=== PATIENT | male | born 1935 | race Caucasian/White ===

== ENCOUNTER → 2016-09-16 | Outpatient (CLI) | payer OTHER, MEDICARE | LOC: BHFA 11:30 | PROVIDERS: ATTEND Internal Medicine Cardiovascular Disease | DX: I48.91 Unspecified atrial fibrillation (principal); I34.8 Other nonrheumatic mitral valve disorders ==

== ENCOUNTER 2016-09-22 06:48 | Inpatient (IN) | payer OTHER, MEDICARE ==
[~2016-09-22 06:48] MED LIST: CEFAZOLIN 2 GM/DEXTROSE/100 ML BAG IV ONE; LIDOCAINE 1% 5 ML SDV ONE; ceFAZolin 2 GM/DEXTROSE 100 ML IV ONE
[2016-09-22] MEDS ORDERED: CEFAZOLIN 2 GM/DEXTROSE/100 ML BAG IV ONE (07:02)
[2016-09-22] MEDS ORDERED: LIDOCAINE 1% 5 ML SDV ONE (07:02)
[2016-09-22] MEDS ORDERED: BUPIVACAINE 0.5% 30 ML SDV ONE (07:18)
[2016-09-22] MEDS ORDERED: LR 1,000 ML IV ONE (07:43)
[2016-09-22] MEDS ORDERED: LIDOCAINE 1% 5 ML SDV ID PRN (07:43)
[2016-09-22] MEDS ORDERED: PROPOFOL 200 MG/20 ML VIAL ONE (07:56)
[2016-09-22] MEDS ORDERED: fentaNYL 250 MCG/5 ML INJ ONE (07:57)
[2016-09-22] MEDS ORDERED: MIDAZOLAM 2 MG/2 ML VIAL ONE (08:20)
[2016-09-22] MEDS ORDERED: ROCURONIUM 50 MG/5 ML VIAL ONE (08:56)
[2016-09-22] MEDS ORDERED: LIDOCAINE 2% 5 ML SDV ONE (08:56)
[2016-09-22] MEDS ORDERED: DEXAMETHASONE 4 MG/ML VIAL ONE (08:56)
[2016-09-22] MEDS ORDERED: epHEDrine SULFATE 10 MG/ML SYR ONE (08:56)
[2016-09-22] MEDS ORDERED: ONDANSETRON 4 MG/2 ML VIAL ONE (08:56)
[2016-09-22] MEDS ORDERED: PROPOFOL/EMULSION 500 MG/50 ML BOTTLE IV ONE (09:02)
[2016-09-22] MEDS ORDERED: SUGAMMADEX SODIUM 200 MG/2 ML VIAL IVP ONE (09:33)
[2016-09-22] MEDS ORDERED: ACETAMINOPHEN 325 MG TAB PO PRN (09:45)
[2016-09-22] MEDS ORDERED: HYDROmorphONE/DILAUDID 1 MG/ML SYR IVP PRN (09:45)
[2016-09-22] MEDS ORDERED: D5W 1/2 NS W/ 20 KCl/L 1,000 ML IV SCH (09:45)
[2016-09-22] MEDS ORDERED: ONDANSETRON 4 MG/2 ML VIAL IVP PRN (09:45)
[2016-09-22] MEDS: LEVOTHYROXINE 88 MCG TAB PO SCH (14:43)
[2016-09-22] MEDS: ROSUVASTATIN CALCIUM 20 MG TAB PO SCH (14:43)
[2016-09-22] MEDS: ASPIRIN 81 MG CHEWABLE TAB PO SCH (14:43)
[2016-09-22] MEDS: HYDROCODONE/APAP 5/325 TAB PO PRN ×2 (15:16→19:13)
--- NOTE | 2016-09-22 19:04 | POSTOPPROG ---
Post Op Note Date of Operation: 09/22/16 Surgeon: John Han Pill Machine Operator: Naveed Fleming Anesthesiologist: Dr Myers Anesthesia: GET(General Endotracheal) Pre-op Diagnosis: right inguinal hernia Post-op Diagnosis: same Indication: pain Procedure: lap right inguinal hernia repiar Findings: very large right inguinal hernia Inf/Abcess present in the surg proc area at time of surgery?: No Depth: Organ Space EBL: 50-100
--- NOTE | 2016-09-22 19:07 | SOAPPROG ---
SOAP Progress Note Assessment/Plan: Assessment: 81yo male s/p very large lap inguinal hernia repair (seen post op around 1400) Pain well controlled at this time, would like to eat solid food. Would like to leave pimentel in until morning. PE awake alert Chest CTA B/L Abd clean dry incisions, nondistended Pimentel in place with small amount of blood at meatus Plan: regular diet Norvasc 10mg for HTN Expect 3 night stay secondary to pain from size of hernia, complex medical condition, also pt lives alone not very mobile. PT/OT 09/22/16 19:04 Objective: Vital Signs Temp Pulse Resp BP Pulse Ox 36.5 C 80 16 162/95 H 90 L 09/22/16 15:00 09/22/16 15:00 09/22/16 15:00 09/22/16 15:00 09/22/16 15:00 09/21/16 09/22/16 09/23/16 05:59 05:59 05:59 Intake Total 3850 Output Total 775 Balance 3075 ICD10 Worksheet Patient Problems: Problems Problem Status Diagnosed Chronic Disease Mgmt/Transitional Care Acute
[2016-09-22] MEDS ORDERED: FLU VACC TS 2016-17(65YR+)/PF 0.5 ML SYR (FLUZONE HIGH DOSE) IM ONE (19:46)
[2016-09-22] MEDS ORDERED: NON-FORMULARY NEW DRUG (Mirtazapine [Mirtazapine] 15 MG) PO SCH (21:00)
[2016-09-22] MEDS: MIRTAZAPINE 15 MG TAB PO SCH (21:28)
[2016-09-23 05:16] LABS: HEMATOCRIT 32.5 % (40.0-51.0); HEMOGLOBIN 10.5 g/dL (13.7-17.5)
[2016-09-23 05:44] LABS: ANION GAP 7 mEq/L (8-16); CALCIUM 8.3 mg/dL (8.5-10.4); CARBON DIOXIDE 24 mEq/l (22-31); CHLORIDE 108 mEq/L (97-110); CREATININE 1.1 mg/dL (0.7-1.3); GLOMERULAR FILTRATION RATE > 60; GLUCOSE 111 mg/dL (70-100); POTASSIUM 4.8 mEq/L (3.5-5.2); SODIUM 139 mEq/L (134-144)
[2016-09-23] MEDS: LEVOTHYROXINE 88 MCG TAB PO SCH (05:53)
[2016-09-23] MEDS: ROSUVASTATIN CALCIUM 20 MG TAB PO SCH (08:00)
[2016-09-23] MEDS: ASPIRIN 81 MG CHEWABLE TAB PO SCH (08:00)
[2016-09-23] MEDS: PARoxetine HCL 10 MG TAB PO SCH (08:00)
[2016-09-23] MEDS: HYDROCODONE/APAP 5/325 TAB PO PRN ×3 (08:01→16:57)
[2016-09-23] MEDS: RIVAROXABAN 20 MG TAB PO SCH (08:02)
--- NOTE | 2016-09-23 12:54 | SOAPPROG ---
SOAP Progress Note Assessment/Plan: Assessment: 81yo male s/p very large lap inguinal hernia repair (seen post op around 1400) Pain well controlled at this time, would like to eat solid food. Would like to leave pimentel in until morning. PE awake alert Chest CTA B/L Abd clean dry incisions, nondistended Pimentel in place with small amount of blood at meatus Plan: regular diet Norvasc 10mg for HTN Expect 3 night stay secondary to pain from size of hernia, complex medical condition, also pt lives alone not very mobile. PT/OT 09/22/16 19:04 09/23/16 12:52 tolerating regular diet, pain well controlled PE awake alert Chest CTA B/L Abdomen incisions clean/dry scrotum enlarged Plan keep pimentel in until Monday continue PT/OT Objective: Vital Signs Temp Pulse Resp BP Pulse Ox 36.4 C 67 17 126/69 H 93 09/23/16 11:13 09/23/16 11:13 09/23/16 11:13 09/23/16 11:13 09/23/16 11:13 Laboratory Results 09/23/16 04:40 09/23/16 04:40 09/22/16 09/23/16 09/24/16 05:59 05:59 05:59 Intake Total 4924 Output Total 1200 Balance 3724 ICD10 Worksheet Patient Problems: Problems Problem Status Diagnosed Chronic Disease Mgmt/Transitional Care Acute
[2016-09-23] MEDS: MIRTAZAPINE 15 MG TAB PO SCH (20:18)
[2016-09-24] MEDS: HYDROCODONE/APAP 5/325 TAB PO PRN ×2 (03:02→10:22)
[2016-09-24] MEDS: LEVOTHYROXINE 88 MCG TAB PO SCH (06:09)
--- NOTE | 2016-09-24 09:56 | SOAPPROG ---
SOAP Progress Note Assessment/Plan: Assessment: LITTLE SLEEPY THIS MORNING BUT CONTINUES TO IMPROVE. WOUNDS ARE HEALING WELL WITH SOME SCROTAL SWELLING ON THE RIGHT. URINE OUTPUT IS ADEQUATE. MODERATE CHRONIC EDEMA BOTH LEGS. ABDOMEN IS SOFT NONTENDER Plan: DELAYED DISCHARGE UNTIL TOMORROW IN IS MORE MOBILE 09/24/16 09:54 Objective: Vital Signs Temp Pulse Resp BP Pulse Ox 37.0 C 63 18 158/80 H 93 09/24/16 08:00 09/24/16 08:00 09/24/16 08:00 09/24/16 08:00 09/24/16 08:00 Laboratory Results 09/23/16 04:40 09/23/16 04:40 09/23/16 09/24/16 09/25/16 05:59 05:59 05:59 Intake Total 4924 0 Output Total 1200 1025 Balance 3724 -1025 ICD10 Worksheet Patient Problems: Problems Problem Status Diagnosed Chronic Disease Mgmt/Transitional Care Acute
[2016-09-24] MEDS: RIVAROXABAN 20 MG TAB PO SCH (10:22)
[2016-09-24] MEDS: ASPIRIN 81 MG CHEWABLE TAB PO SCH (10:22)
[2016-09-24] MEDS: ROSUVASTATIN CALCIUM 20 MG TAB PO SCH (10:23)
[2016-09-24] MEDS: PARoxetine HCL 10 MG TAB PO SCH (10:23)
[2016-09-24] MEDS ORDERED: POLYETHYLENE GLYCOL 3350 17 GM PKT PO PRN (16:13)
[2016-09-24] MEDS ORDERED: LACTULOSE 20 GM/30 ML UDCUP PO PRN (16:13)
[2016-09-24] MEDS ORDERED: MAGNESIUM HYDROXIDE 30 ML UDCUP PO PRN (16:13)
[2016-09-24] MEDS ORDERED: BISACODYL 10 MG SUPP PR PRN (16:13)
[2016-09-24] MEDS: MIRTAZAPINE 15 MG TAB PO SCH (20:34)
[2016-09-24] MEDS: SENNOSIDES/DOCUSATE SODIUM TAB PO SCH (20:34)
[2016-09-25] MEDS: LEVOTHYROXINE 88 MCG TAB PO SCH (05:54)
[2016-09-25] MEDS: PARoxetine HCL 10 MG TAB PO SCH (09:45)
[2016-09-25] MEDS: ASPIRIN 81 MG CHEWABLE TAB PO SCH (09:45)
[2016-09-25] MEDS: SENNOSIDES/DOCUSATE SODIUM TAB PO SCH ×2 (09:45→20:16)
[2016-09-25] MEDS: RIVAROXABAN 20 MG TAB PO SCH (09:46)
[2016-09-25] MEDS: ROSUVASTATIN CALCIUM 20 MG TAB PO SCH (09:46)
[2016-09-25] MEDS: FLUDROCORTISONE ACETATE 0.1 MG TAB PO SCH (12:38)
--- NOTE | 2016-09-25 18:38 | SOAPPROG ---
SOAP Progress Note Assessment/Plan: Assessment: LITTLE SLEEPY THIS MORNING BUT CONTINUES TO IMPROVE. WOUNDS ARE HEALING WELL WITH SOME SCROTAL SWELLING ON THE RIGHT. URINE OUTPUT IS ADEQUATE. MODERATE CHRONIC EDEMA BOTH LEGS. ABDOMEN IS SOFT NONTENDER Plan: DELAYED DISCHARGE UNTIL TOMORROW IN IS MORE MOBILE 09/24/16 09:54 09/25/16 18:35 DOING OK/ WOUNDS OK/ AFEBRILE/SOME SCROTAL SWELLING/ PLAN DC MAN/ SNF Objective: Vital Signs Temp Pulse Resp BP Pulse Ox 36.4 C 65 16 132/66 H 94 09/25/16 15:03 09/25/16 15:03 09/25/16 15:03 09/25/16 15:03 09/25/16 15:03 Laboratory Results 09/23/16 04:40 09/23/16 04:40 09/24/16 09/25/16 09/26/16 05:59 05:59 05:59 Intake Total 0 2100 Output Total 1025 2050 Balance -1025 50 ICD10 Worksheet Patient Problems: Problems Problem Status Diagnosed Chronic Disease Mgmt/Transitional Care Acute
[2016-09-25] MEDS: MIRTAZAPINE 15 MG TAB PO SCH (20:16)
[2016-09-26 04:26] VITALS: RESP 18
[2016-09-26] MEDS: LEVOTHYROXINE 88 MCG TAB PO SCH (05:40)
[2016-09-26 08:07] VITALS: BP 150/77; TEMP 97.3
[2016-09-26] MEDS: ROSUVASTATIN CALCIUM 20 MG TAB PO SCH (09:15)
[2016-09-26] MEDS: ASPIRIN 81 MG CHEWABLE TAB PO SCH (09:16)
[2016-09-26] MEDS: PARoxetine HCL 10 MG TAB PO SCH (09:17)
[2016-09-26] MEDS: RIVAROXABAN 20 MG TAB PO SCH (09:17)
[2016-09-26] MEDS: SENNOSIDES/DOCUSATE SODIUM TAB PO SCH (09:18)
--- NOTE | 2016-09-26 09:18 | PDIAF ---
- Diagnosis Diagnosis: s/p hernia surgery Code Status: Full Code - Medication Management Discharge Medications: Medications to Continue on Transfer Fludrocortisone Acetate [Florinef] 0.1 mg PO DAILY10 01/24/13 [Last Taken ] Levothyroxine [Synthroid 88 mcg (*)] 88 mcg PO DAILY06 01/24/13 [Last Taken 09/06] Rivaroxaban [Xarelto] 20 mg PO DAILY 02/02/15 [Last Taken 09/15/16] Aspirin [Aspirin 81mg (*)] 81 mg PO DAILY 06/02/16 [Last Taken 09/08/16] Mirtazapine 15 mg PO HS 09/21/16 [Last Taken 09/21/16] PARoxetine HCL [Paxil 10mg (*)] 5 mg PO DAILY 09/21/16 [Last Taken 09/21/16] Rosuvastatin Calcium [Crestor 20mg (*)] 10 mg PO DAILY 09/21/16 [Last Taken 09/06] Acetaminophen [Tylenol 325mg (*)] 325 - 650 mg PO Q4HRS PRN #0 tab 09/26/16 [ Last Taken Unknown] Discharge Medications: Refer to the Discharge Home Medication list for PRN reason. - Orders Services needed: Home Care, Physical Therapy, Occupational Therapy Home Care Face to Face: I certify that this patient was under my care and that I had the required osxw-ie-bess encounter meeting the encounter requirements on the discharge day. My findings support the fact that the patient is homebound as defined in CMS Chapter 7 Medicare Benefits Manual 30.1.1, The condition of the patient is such that there exists a normal inability to leave home and consequently, leaving home would require a considerable and taxing effort. Diet Recommendation: no restrictions on diet Diet Texture: Regular Texture Diet Wound Care Instructions: see discharge plan - Follow Up Care Current Providers and Referrals: Gerald Henry MD [Primary Care Provider] -
--- NOTE | 2016-09-26 09:19 | SOAPPROG ---
SOAP Progress Note Assessment/Plan: Assessment: 81yo male s/p very large lap inguinal hernia repair tolerating diet, no pain today, working with PT/OT PE awake alert Abdomen incisions clean/dry, abdomen soft to palpation, right sided scrotal swelling. Plan D/C to SNF Objective: Vital Signs Temp Pulse Resp BP Pulse Ox 36.3 C 561 H 18 150/77 H 94 09/26/16 08:06 09/26/16 08:06 09/26/16 08:06 09/26/16 08:06 09/26/16 08:06 Laboratory Results 09/23/16 04:40 09/23/16 04:40 09/25/16 09/26/16 09/27/16 05:59 05:59 05:59 Intake Total 2100 Output Total 2049 200 Balance 50 -200 ICD10 Worksheet Patient Problems: Problems Problem Status Diagnosed Chronic Disease Mgmt/Transitional Care Acute
--- NOTE | 2016-09-26 10:03 | PDIAF ---
- Diagnosis Diagnosis: s/p hernia surgery Code Status: Full Code - Medication Management Discharge Medications: Medications to Continue on Transfer Fludrocortisone Acetate [Florinef] 0.1 mg PO DAILY10 01/24/13 [Last Taken ] Levothyroxine [Synthroid 88 mcg (*)] 88 mcg PO DAILY06 01/24/13 [Last Taken 09/06] Rivaroxaban [Xarelto] 20 mg PO DAILY 02/02/15 [Last Taken 09/15/16] Aspirin [Aspirin 81mg (*)] 81 mg PO DAILY 06/02/16 [Last Taken 09/08/16] Mirtazapine 15 mg PO HS 09/21/16 [Last Taken 09/21/16] PARoxetine HCL [Paxil 10mg (*)] 5 mg PO DAILY 09/21/16 [Last Taken 09/21/16] Rosuvastatin Calcium [Crestor 20mg (*)] 10 mg PO DAILY 09/21/16 [Last Taken 09/06] Acetaminophen [Tylenol 325mg (*)] 325 - 650 mg PO Q4HRS PRN #0 tab 09/26/16 [ Last Taken Unknown] Discharge Medications: Refer to the Discharge Home Medication list for PRN reason. - Orders Services needed: Registered Nurse, Certified [employer] W[employer], Physical Therapy, Occupational Therapy Diet Recommendation: no restrictions on diet Diet Texture: Regular Texture Diet Wound Care Instructions: see discharge plan - Follow Up Care Current Providers and Referrals: Gerald Henry MD [Primary Care Provider] -
[2016-09-26] MEDS: FLUDROCORTISONE ACETATE 0.1 MG TAB PO SCH (11:08)
[2016-09-26 11:20] VITALS: PULSE 61; O2SAT 93
--- NOTE | 2016-09-26 12:47 | GOP ---
[f rep st] OPERATIVE REPORT DATE OF OPERATION: 09/22/2016 SURGEON: John Han MD [employer] MECHANIC: Sanchez WARD ANESTHESIOLOGIST: Dr. Vallecillo PREOPERATIVE DIAGNOSIS: Large right inguinal hernia. POSTOPERATIVE DIAGNOSIS: Left right inguinal hernia. PROCEDURE PERFORMED: Laparoscopic right inguinal hernia repair and exploration of the left. FINDINGS: Patient was found to have a giant total right indirect inguinal hernia. There was no evid ence of a hernia sac on the left side. DESCRIPTION OF PROCEDURE: Patient taken to the operating room, where he received a satisfactory gene ral endotracheal anesthesia by Dr. Vallecillo. He was placed in the supine position, prepped and drap ed in the usual sterile fashion. Infraumbilical incision was made. Dissection was carried down to the rectus sheath, which was incise d. Subfascial tunnel was developed in the preperitoneal space that was replaced with the CO2 insuffl ation trocar. Two other trocars were placed in the lower abdomen under direct vision. Jaswinder's ligament was exposed and cords were mobilized. On the left side, there was no evidence of i ndirect sac or direct defect of any significance. On the right, the cord was mobilized. A very larg e indirect sac was tediously dissected free from the cord structures and eventually reduced. Hemosta sis was carefully obtained. A 3D mesh polypropylene patch was inserted into the inguinal floor. It was anchored to Jaswinder's liga ment and to the lacunar ligament with AbsorbaTacks. It was also anchored to the anterior abdominal w all. The previously dissected hernia sac was also tacked up to the anterior abdominal wall with the AbsorbaTack. Hemostasis was assured. No evidence of a hernia was identified on the left. Trocars were removed under direct vision. Pneumopreperitoneum was released. Trocar sites were close d with 0 Vicryl for the fascia, 4-0 Monocryl subcuticular stitch for the skin, and all layers were in filtrated with 0.5% Marcaine. Blood loss was less than 50 cc. There were no complications. /[id number]/MODL
--- NOTE | 2016-09-26 22:49 | GDS ---
[f rep st] DISCHARGE SUMMARY REASON FOR ADMISSION: Large inguinal hernia. 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 The hernia was quite large. Therefore, he had some post operative pain which required him to stay for a few days. [facility] was discharged to a [facility]. His hospital course was also remarkable for placement of Anderson catheter and subsequent remova l. He did seem to do well after removal. His scrotum was still enlarged after his Anderson catheter re moval but he seemed to be doing well just prior to discharge. [facility]. He will follow up in our office in approximately 10 days. It is okay for him to shower normally. He did not take any pain medicine greater than 24 itz rs prior to discharge. /[id number]/MODL
== END 2016-09-26 11:56 | DRG 352 ==
LOC: FSGY 06:48 → EEVIPCON 08:30 → F3E 09:45 → OBSVTOIN 14:11
PROVIDERS: ADMIT Surgery; ATTEND Surgery
PROC: 0YU54JZ Supplement Right Inguinal Region with Synthetic Substitute, Percutaneous Endoscopic Approach (ICD-10-PCS; principal; 2016-09-22 08:30)
DX: K40.90 Unilateral inguinal hernia, without obstruction or gangrene, not specified as recurrent (principal); G89.18 Other acute postprocedural pain; I10 Essential (primary) hypertension; E78.5 Hyperlipidemia, unspecified; E03.9 Hypothyroidism, unspecified; Z23 Encounter for immunization; Z86.711 Personal history of pulmonary embolism; Z95.0 Presence of cardiac pacemaker
CPT/HCPCS: 97116-GP; 97161-GP; 97165-GO; 97530-GP; 97535-GO; C1727; C1781; G0008; G8978-GP-CM; G8979-GP-CJ; G8987-GO-CJ; G8988-GO-CI; J0690; J1100; J1170; J2250; J2405; J2704; J3010

== ENCOUNTER 2017-05-18 22:48 | Inpatient (IN) | payer OTHER, MEDICARE ==
--- NOTE | 2017-05-18 22:50 | EDPHY ---
H & P HPI/ROS: HPI The patient presents brought in by ambulance from [facility] for altered mental status for the last 3 days. He apparently has been more confused than normal. Labs were sent today which did reveal a urinary tract infection per the correction, though I do not have record of this. He was started on ciprofloxacin today. Also had a leukocytosis of 19,000 with elevated BUN and creatinine of 44 and 2.0 respectively. Liver tests were also abnormal. He was sent to the emergency room for further evaluation. The patient denies any complaints. He says he has not had a fever, cough, vomiting, abdominal pain. He says in general he is a light eater N needs to drink more fluids. REVIEW OF SYSTEMS Constitutional: No fever, no chills. Eyes: No discharge. ENT: No sore throat. Cardiovascular: No chest pain, no palpitations. Respiratory: No cough, no shortness of breath. Gastrointestinal: No abdominal pain, no vomiting. Genitourinary: No hematuria. Musculoskeletal: No back pain. Skin: No rashes. Neurological: No headache. PMHx: Cognitive impairment, atrial fibrillation, osteoarthritis, hypothyroidism General Alert, no distress Eyes: Pupils equal and round no pallor or injection ENT, Mouth: Mucous membranes dry Respiratory: There are no retractions, lungs are clear to auscultation Cardiovascular: Regular rate and rhythm Gastrointestinal: Abdomen is soft and non-tender, no masses, bowel sounds normal Neurological: A&O, moves all extremities Skin: Warm and dry, no rashes Musculoskeletal: Neck is supple non tender Extremities: symmetrical, full range of motion Psychiatric: Patient is oriented X 2, there is no agitation Source: Patient, EMS, long-term records, Old records - Personal History Tetanus Vaccine Date: 2006 - Medical/Surgical History Hx Asthma: No Hx Chronic Respiratory Disease: No Hx Diabetes: No Hx Cardiac Disease: Yes Hx Renal Disease: Yes Hx Cirrhosis: No Hx Alcoholism: No Hx HIV/AIDS: No Hx Splenectomy or Spleen Trauma: No Other PMH: OA/Afib/paced/tia/hypogonadism?/throid issues - Social History Smoking Status: Former smoker Constitutional: Initial Vital Signs Temperature (C) 36.6 C 05/18/17 22:48 Heart Rate 73 05/18/17 22:48 Respiratory Rate 16 05/18/17 22:48 Blood Pressure 130/70 H 05/18/17 22:48 O2 Sat (%) 93 05/18/17 22:48 O2 Delivery Mode Room Air Allergies/Adverse Reactions: No Known Allergies Allergy (Verified 09/21/16 15:44) Home Medications: Medication Instructions Recorded Fludrocortisone Acetate [Florinef] 0.1 mg PO DAILY10 01/24/13 Levothyroxine [Synthroid 88 mcg 88 mcg PO DAILY06 01/24/13 (*)] Rivaroxaban [Xarelto] 20 mg PO DAILY 02/02/15 Aspirin [Aspirin 81mg (*)] 81 mg PO DAILY 06/02/16 Mirtazapine 15 mg PO HS 09/21/16 Acetaminophen [Tylenol 325mg (*)] 325 - 650 mg PO Q4HRS PRN #0 tab 09/26/16 Celexa 05/18/17 Ciprofloxacin 05/18/17 Loperamide 05/18/17 VITAMIN D 05/18/17 Medical Decision Making - Diagnostics Imaging Results: Right upper quadrant ultrasound demonstrates sludge and stones in the gallbladder with thickened gallbladder wall, common bile duct is dilated at 1.5 cm. This is discussed with Dr. Abel of Radiology. Imaging: Discussed imaging studies w/ rabbit fancier Radiologist Differential Diagnosis: This is an 82-year-old man presenting from assisted living facility with past medical history of atrial fibrillation, cognitive impairment, though unclear degree, hypothyroidism who presents with altered mental status for the last 3 days, diagnosed with UTI today at his assisted living and started on ciprofloxacin, transfer to the emergency room for abnormal labs which do reveal what appears to be pre renal azotemia with likely some degree of chronic renal insufficiency. He also has elevated liver tests. Differential diagnosis includes sepsis, UTI, cholecystitis, intra-abdominal infection, dehydration. In the emergency department, patient was given IV fluids. UA returned and did show a urinary tract infection. Ultrasound of right upper quadrant was performed which did demonstrate cholecystitis with enlarged CBD. Because of this, I consulted with surgery and discussed the case with Dr. Foster. He came to the emergency room and consulted on the patient. I also discussed the case with the hospitalist, Dr. Delgado. We will admit the patient to the hospitalist service given that he likely has choledocholithiasis with cholecystitis. He has received ceftriaxone and Flagyl at this point. He has been hemodynamically stable and I feel risk of ascending cholangitis is present but not likely. He will likely have ERCP later today. - Data Points Laboratory Results: Laboratory Results 05/18/17 22:55 05/18/17 22:55 05/19/17 05/18/17 05/18/17 00:49 22:55 22:55 WBC 15.83 10^3/uL H 10^3/uL (3.80-9.50) RBC 4.18 10^6/uL L 10^6/uL (4.40-6.38) Hgb 12.4 g/dL L g/dL (13.7-17.5) Hct 37.3 % L % (40.0-51.0) MCV 89.2 fL fL (81.5-99.8) MCH 29.7 pg pg (27.9-34.1) MCHC 33.2 g/dL g/dL (32.4-36.7) RDW 15.7 % H % (11.5-15.2) Plt Count 248 10^3/uL 10^3/uL (150-400) MPV 10.4 fL fL (8.7-11.7) Neut % (Auto) 78.7 % H % (39.3-74.2) Lymph % (Auto) 13.4 % L % (15.0-45.0) [place] % (Auto) 6.5 % % (4.5-13.0) Eos % (Auto) 0.4 % L % (0.6-7.6) Baso % (Auto) 0.1 % L % (0.3-1.7) Nucleat RBC Rel Count 0.0 % % (0.0-0.2) Absolute Neuts (auto) 12.46 10^3/uL H 10^3/uL (1.70-6.50) Absolute Lymphs (auto) 2.12 10^3/uL 10^3/uL (1.00-3.00) Absolute Monos (auto) 1.03 10^3/uL H 10^3/uL (0.30-0.80) Absolute Eos (auto) 0.06 10^3/uL 10^3/uL (0.03-0.40) Absolute Basos (auto) 0.02 10^3/uL 10^3/uL (0.02-0.10) Absolute Nucleated RBC 0.00 10^3/uL 10^3/uL (0-0.01) Immature Gran % 0.9 % % (0.0-1.1) Immature Gran # 0.14 10^3/uL H 10^3/uL (0.00-0.10) Sodium 135 mEq/L mEq/L (134-144) Potassium 4.4 mEq/L mEq/L (3.5-5.2) Chloride 102 mEq/L mEq/L (97-110) Carbon Dioxide 22 mEq/l mEq/l (22-31) Anion Gap 11 mEq/L mEq/L (8-16) BUN 42 mg/dL H mg/dL (7-23) Creatinine 1.8 mg/dL H mg/dL (0.7-1.3) Estimated GFR 36 Glucose 102 mg/dL H mg/dL (70-100) Calcium 9.4 mg/dL mg/dL (8.5-10.4) Total Bilirubin 4.3 mg/dL H mg/dL (0.1-1.4) Conjugated Bilirubin 3.6 mg/dL H mg/dL (0.0-0.5) Unconjugated Bilirubin 0.7 mg/dL mg/dL (0.0-1.1) AST 88 IU/L H IU/L (17-59) ALT 164 IU/L H IU/L (21-72) Alkaline Phosphatase 398 IU/L H IU/L (38-126) Total Protein 6.4 g/dL g/dL (6.3-8.2) Albumin 3.3 g/dL L g/dL (3.5-5.0) Urine Color RONALDO Urine Appearance TURBID Urine pH 5.0 (5.0-7.5) Ur Specific [place] 1.019 (1.002-1.030) Urine Protein 1+ H (NEGATIVE) Urine Ketones NEGATIVE (NEGATIVE) Urine Blood 1+ H (NEGATIVE) Urine Nitrate NEGATIVE (NEGATIVE) Urine Bilirubin POSITIVE H (NEGATIVE) Urine Urobilinogen 4.0 EU H EU (0.2-1.0) Ur Leukocyte Esterase 3+ H (NEGATIVE) Urine RBC 50-182 /hpf H /hpf (0-3) Urine WBC 50-182 /hpf H /hpf (0-3) Ur Epithelial Cells TRACE /lpf /lpf (NONE-1+) Urine Bacteria 4+ /hpf H /hpf (NONE SEEN) Urine Mucus 1+ /lpf /lpf (NONE-1+) Urine Glucose NEGATIVE (NEGATIVE) Medications Given: Discontinued Medications Sodium Chloride (Ns) 1,000 mls @ 0 mls/hr IV EDNOW ONE; Wide Open PRN Reason: Protocol Stop: 05/18/17 23:10 Last Admin: 05/18/17 23:40 Dose: 1,000 mls Ceftriaxone Sodium/Dextrose (Rocephin 1 Gm (Premix)) 50 mls @ 100 mls/hr IV EDNOW ONE PRN Reason: Protocol Stop: 05/19/17 01:47 Last Admin: 05/19/17 01:27 Dose: 50 mls Metronidazole/Sodium Chloride (Flagyl 500 Mg (Premix)) 100 mls @ 100 mls/hr IV EDNOW ONE PRN Reason: Protocol Stop: 05/19/17 03:14 Last Admin: 05/19/17 02:34 Dose: 100 mls Sodium Chloride (Ns) 1,000 mls @ 3,000 mls/hr IV ONCE ONE Stop: 05/19/17 02:58 Last Admin: 05/19/17 02:40 Dose: 1,000 mls Departure - [facility] Clinical Impression: Acute on chronic renal insufficiency, Cholecystitis, Choledocholithiasis UTI (urinary tract infection) Qualifiers: Urinary tract infection type: site unspecified Hematuria presence: without hematuria Qualified Code(s): N39.0 - Urinary tract infection, site not specified Altered mental status Qualifiers: Altered mental status type: disorientation Qualified Code(s): R41.0 - Disorientation, unspecified Condition: Fair
[2017-05-18 23:06] LABS: % IMMATURE GRANULYOCYTES 0.9 % (0.0-1.1); ABSOLUTE IMMATURE GRANULOCYTES 0.14 10^3/uL (0.00-0.10); ADD DIFF? NO; ADD MORPH? NO; ADD SCAN? NO; ATYPICAL LYMPHOCYTE FLAG 10 (0-99); FRAGMENT RBC FLAG 0 (0-99); HEMATOCRIT 37.3 % (40.0-51.0); HEMOGLOBIN 12.4 g/dL (13.7-17.5); LEFT SHIFT FLG 0 (0-99); LIPEMIA HEMOLYSIS FLAG 80 (0-99); MEAN CELL HEMOGLOBIN 29.7 pg (27.9-34.1); MEAN CELL HEMOGLOBIN CONCENTR. 33.2 g/dL (32.4-36.7); MEAN CELL VOLUME 89.2 fL (81.5-99.8); MEAN PLATELET VOLUME 10.4 fL (8.7-11.7); PLATELET CLUMPS FLAG 0 (0-99); PLATELET COUNT 248 10^3/uL (150-400); RED BLOOD CELL COUNT 4.18 10^6/uL (4.40-6.38); RED CELL DISTRIBUTION WIDTH 15.7 % (11.5-15.2)
[2017-05-18] MEDS ORDERED: NS 1,000 ML IV ONE (23:09)
[2017-05-18 23:20] LABS: ALANINE AMINOTRANSFERASE 164 IU/L (21-72); ALBUMIN 3.3 g/dL (3.5-5.0); ALKALINE PHOSPHATASE 398 IU/L (38-126); ANION GAP 11 mEq/L (8-16); ASPARTATE AMINOTRANSFERASE 88 IU/L (17-59); BILIRUBIN,TOTAL 4.3 mg/dL (0.1-1.4); CALCIUM 9.4 mg/dL (8.5-10.4); CARBON DIOXIDE 22 mEq/l (22-31); CHLORIDE 102 mEq/L (97-110); CREATININE 1.8 mg/dL (0.7-1.3); GLOMERULAR FILTRATION RATE 36; GLUCOSE 102 mg/dL (70-100); POTASSIUM 4.4 mEq/L (3.5-5.2); SODIUM 135 mEq/L (134-144); TOTAL PROTEIN 6.4 g/dL (6.3-8.2)
[2017-05-18 23:32] LABS: BILIRUBIN-CONJUGATED 3.6 mg/dL (0.0-0.5); BILIRUBIN-UNCONJUGATED 0.7 mg/dL (0.0-1.1)
[2017-05-19 01:08] LABS: COLOR AMBER; LEUKOCYTE ESTERASE,URINE 3+ (NEGATIVE); NITRITE,URINE NEGATIVE (NEGATIVE)
[2017-05-19 01:19] LABS: BACTERIA 4+ /hpf (NONE SEEN); MUCUS 1+ /lpf (NONE-1+); RBC,URINE 50-182 /hpf (0-3); WBC,URINE 50-182 /hpf (0-3)
[2017-05-19] MEDS ORDERED: ONDANSETRON 4 MG/2 ML VIAL IVP PRN ×2 (02:36→16:45)
[2017-05-19] MEDS ORDERED: ONDANSETRON DISINTEGRATING 4 MG TAB PO PRN (02:36)
[2017-05-19] MEDS ORDERED: NS 1,000 ML IV ONE (02:39)
--- NOTE | 2017-05-19 02:45 | PDGENHP ---
History and Physical - Chief Complaint Fatigue - History of Present Illness 82 yo M w/ hx of Afib presents from nursing facility with fatigue. History is severely limited by patient's advanced dementia. Per ED, patient was noted by nursing facility to be fatigued. They checked a UA and noted abnormal findings, so they sent him to the ED for evaluation. The patient is relatively asymptomatic on my evaluation and specifically denies fever, chills, abdominal pain, dysuria, and frequency. History Information - Allergies/Home Medication List Allergies/Adverse Reactions: No Known Allergies Allergy (Verified 09/21/16 15:44) Home Medications: Fludrocortisone Acetate [Florinef] 0.1 mg PO DAILY10 01/24/13 [Last Taken ] Levothyroxine [Synthroid 88 mcg (*)] 88 mcg PO DAILY06 01/24/13 [Last Taken 09/06] Rivaroxaban [Xarelto] 20 mg PO DAILY 02/02/15 [Last Taken 09/15/16] Aspirin [Aspirin 81mg (*)] 81 mg PO DAILY 06/02/16 [Last Taken 09/08/16] Mirtazapine 15 mg PO HS 09/21/16 [Last Taken 09/21/16] Celexa 05/18/17 [Last Taken Unknown] Ciprofloxacin 05/18/17 [Last Taken Unknown] Loperamide 05/18/17 [Last Taken Unknown] VITAMIN D 05/18/17 [Last Taken Unknown] I have personally reviewed and updated: family history, medical history - Past Medical History atrial fibrillation - Surgical History Reports: hernia repair - Family History Additional family history: Asked, unable to provide - Social History Smoking Status: Former smoker Review of Systems Review of Systems: ROS: 10pt was reviewed & negative except for what was stated in HPI & below Physical Exam Physical Exam: Temp Pulse Resp BP Pulse Ox 36.6 C 62 16 127/79 H 96 05/18/17 22:48 05/19/17 01:33 05/19/17 01:33 05/19/17 01:33 05/19/17 01:33 Constitutional: no apparent distress, appears nourished Eyes: PERRL, icteric sclera Ears, Nose, Mouth, Throat: moist mucous membranes, other (mucosal jaundice noted ) Cardiovascular: regular rate and rhythym, other (S4 noted) Respiratory: no respiratory distress, clear to auscultation Gastrointestinal: normoactive bowel sounds, soft, non-tender abdomen Skin: warm, no rashes or abrasions Musculoskeletal: full muscle strength, no muscle tenderness Neurologic: sensation intact bilaterally, other (A&Ox1) Psychiatric: interacting appropriately, not anxious Lab Data & Imaging Review 05/18/17 22:55 05/18/17 22:55 WBC 15.83 10^3/uL (3.80-9.50) H 05/18/17 22:55 RBC 4.18 10^6/uL (4.40-6.38) L 05/18/17 22:55 Hgb 12.4 g/dL (13.7-17.5) L 05/18/17 22:55 Hct 37.3 % (40.0-51.0) L 05/18/17 22:55 MCV 89.2 fL (81.5-99.8) 05/18/17 22:55 MCH 29.7 pg (27.9-34.1) 05/18/17 22:55 MCHC 33.2 g/dL (32.4-36.7) 05/18/17 22:55 RDW 15.7 % (11.5-15.2) H 05/18/17 22:55 Plt Count 248 10^3/uL (150-400) 05/18/17 22:55 MPV 10.4 fL (8.7-11.7) 05/18/17 22:55 Neut % (Auto) 78.7 % (39.3-74.2) H 05/18/17 22:55 Lymph % (Auto) 13.4 % (15.0-45.0) L 05/18/17 22:55 [place] % (Auto) 6.5 % (4.5-13.0) 05/18/17 22:55 Eos % (Auto) 0.4 % (0.6-7.6) L 05/18/17 22:55 Baso % (Auto) 0.1 % (0.3-1.7) L 05/18/17 22:55 Nucleat RBC Rel Count 0.0 % (0.0-0.2) 05/18/17 22:55 Absolute Neuts (auto) 12.46 10^3/uL (1.70-6.50) H 05/18/17 22:55 Absolute Lymphs (auto) 2.12 10^3/uL (1.00-3.00) 05/18/17 22:55 Absolute Monos (auto) 1.03 10^3/uL (0.30-0.80) H 05/18/17 22:55 Absolute Eos (auto) 0.06 10^3/uL (0.03-0.40) 05/18/17 22:55 Absolute Basos (auto) 0.02 10^3/uL (0.02-0.10) 05/18/17 22:55 Absolute Nucleated RBC 0.00 10^3/uL (0-0.01) 05/18/17 22:55 Immature Gran % 0.9 % (0.0-1.1) 05/18/17 22:55 Immature Gran # 0.14 10^3/uL (0.00-0.10) H 05/18/17 22:55 Sodium 135 mEq/L (134-144) 05/18/17 22:55 Potassium 4.4 mEq/L (3.5-5.2) 05/18/17 22:55 Chloride 102 mEq/L (97-110) 05/18/17 22:55 Carbon Dioxide 22 mEq/l (22-31) 05/18/17 22:55 Anion Gap 11 mEq/L (8-16) 05/18/17 22:55 BUN 42 mg/dL (7-23) H 05/18/17 22:55 Creatinine 1.8 mg/dL (0.7-1.3) H 05/18/17 22:55 Estimated GFR 36 05/18/17 22:55 Glucose 102 mg/dL (70-100) H 05/18/17 22:55 Calcium 9.4 mg/dL (8.5-10.4) 05/18/17 22:55 Total Bilirubin 4.3 mg/dL (0.1-1.4) H 05/18/17 22:55 Conjugated Bilirubin 3.6 mg/dL (0.0-0.5) H 05/18/17 22:55 Unconjugated Bilirubin 0.7 mg/dL (0.0-1.1) 05/18/17 22:55 AST 88 IU/L (17-59) H 05/18/17 22:55 ALT 164 IU/L (21-72) H 05/18/17 22:55 Alkaline Phosphatase 398 IU/L (38-126) H 05/18/17 22:55 Total Protein 6.4 g/dL (6.3-8.2) 05/18/17 22:55 Albumin 3.3 g/dL (3.5-5.0) L 05/18/17 22:55 Urine Color RONALDO 05/19/17 00:49 Urine Appearance TURBID 05/19/17 00:49 Urine pH 5.0 (5.0-7.5) 05/19/17 00:49 Ur Specific [employer] [place] 1.019 (1.002-1.030) 05/19/17 00:49 Urine Protein 1+ (NEGATIVE) H 05/19/17 00:49 Urine Ketones NEGATIVE (NEGATIVE) 05/19/17 00:49 Urine Blood 1+ (NEGATIVE) H 05/19/17 00:49 Urine Nitrate NEGATIVE (NEGATIVE) 05/19/17 00:49 Urine Bilirubin POSITIVE (NEGATIVE) H 05/19/17 00:49 Urine Urobilinogen 4.0 EU (0.2-1.0) H 05/19/17 00:49 Ur Leukocyte Esterase 3+ (NEGATIVE) H 05/19/17 00:49 Urine RBC 50-182 /hpf (0-3) H 05/19/17 00:49 Urine WBC 50-182 /hpf (0-3) H 05/19/17 00:49 Ur Epithelial Cells TRACE /lpf (NONE-1+) 05/19/17 00:49 Urine Bacteria 4+ /hpf (NONE SEEN) H 05/19/17 00:49 Urine Mucus 1+ /lpf (NONE-1+) 05/19/17 00:49 Urine Glucose NEGATIVE (NEGATIVE) 05/19/17 00:49 Imaging Review: Abd U/S with signs of cholecystitis and CBD obstruction. Assessment & Plan Assessment: 82 yo M presents with fatigue and found to have grossly abnormal UA, LFTs, and imaging findings c/w cholecystitis and CBD obstruction. Plan: 1. Dilated CBD - Most likely represents choledocholithiasis; ascending cholangitis a clear consideration but patient with no systemic symptoms of infection currently. Will need further imaging and intervention. - Evaluated by surgery in ED; maintain NPO but no need for urgent intervention - Will consult GI for likely ERCP - CTX/Flagyl for empiric intra-abdominal coverage; blood cultures ordered 2. Cholecystitis - As suggested by imaging and abnormal LFTs. Patient asymptomatic with benign abdominal exam. - Antibiotics as above - Surgery following, will likely require cholecystectomy in the near term; complicated by home anticoagulation 3. UTI - Although asymptomatic, UA grossly abnormal with 3+ LE, 4+ bacteria, and >50 WBCs. - CTX 1 g q24h, urine culture pending 4. Abnormal LFTs - Suspect a result of #1 and #2 above; trend daily. 5. FIORELLA on CKD - Creatinine baseline appears to be in 1.1-1.5 range; 1.8 on admission. Repeat BMP after IVF. 6. Hx of afib - Seems to be on rivaroxaban chronically, patient cannot confirm. - Hold AC noting need for intervention; will check ECG 7. Hypothyroid - On LTX Diet - NPO Code - Full for now but discussion limited with patient due to advanced dementia , would readdress with family Ppx - SCDs Dispo - Admit to inpatient status noting need for IV antibiotics, further diagnostic testing, and likely surgical intervention.
--- NOTE | 2017-05-19 03:33 | GCON ---
[f rep st] CONSULTATION DATE OF CONSULTATION: 05/19/2017 CHIEF COMPLAINT: Abnormal labs. HISTORY OF PRESENT ILLNESS: This is an 82-year-old male, who resides in a memory care assisted living, who presents from his facility with altered mental status. Per report, it sounds like he has been more confused over the last 3 days than he has previously. Of note, the patient provides little to no insight into his disease and help with this history and physical. Most of it is obtained from chart review and review of his records from his care facility. At any rate, upon meeting the patient, he states he has no complaints and actually wants to go home. It sounds like he was having worsening mental status , which prompted some labs, which showed that he had a significant leukocytosis. Here in the emergency department, he has had multiple imaging modalities and studies performed, which show he has elevated white blood cell count with a left shift to 16,000. An ultrasound which shows stone sludge gallbladder wall thickening and an elevated common bile duct with an elevated bilirubin of 4. He also has what appears to be an active significant urinary tract infection. Patient has no complaints. CURRENT MEDICATIONS: reviewed in [facility], includes Xarelto PAST MEDICAL HISTORY: Pulmonary hypertension, atrial fibrillation, coronary artery disease, hypothyroidism, history of PE, major depressive disorder, osteoarthritis, and significant memory impairment. PAST SURGICAL HISTORY: Right inguinal hernia. SOCIAL HISTORY: Lives in a care facility. FAMILY HISTORY: Noncontributory. REVIEW OF SYSTEMS: A full 10-point review was performed and, unless explicitly stated above, is otherwise negative. PHYSICAL EXAMINATION: VITAL SIGNS: Temperature 36.6, blood pressure 127/79, heart rate 62, and he is 96% on room air. CONSTITUTIONAL: He is confused, in no apparent distress, and appears comfortable. EYES: His pupils are equal, round, and reactive to light and accommodation. He has anicteric sclerae. His extraocular movements are intact. EARS, NOSE, MOUTH, AND THROAT: He has moist mucous membranes. His hearing appears to be normal. He has no oral mucosal ulcers. CARDIOVASCULAR: He is irregularly irregular. He does have a systolic ejection murmur. RESPIRATORY: No respiratory distress. No rales or rhonchi. GI: Normoactive bowel sounds. Negative Sanchez's. He is soft, nondistended, nontender, without rebound tenderness or guarding. SKIN: Warm. Normal color. No rashes. MUSCULOSKELETAL: Full muscle strength. No muscular tenderness. Normal joint range of motion. NEUROLOGIC: He is alert and oriented x1. His cranial nerves 2-12 do appear to be intact. He has no apparent weakness. PSYCH : Again, he is confused. He is able to state that he has no pain and that he is in the hospital, but he is unaware of where he lives, what medical problems he has, and insight really into the general well-being. LYMPH, HEME, AND IMMUNOLOGIC: No cervical or groin lymphadenopathy appreciated. LABORATORY DATA: Include a leukocytosis to 16,000. H and H are stable at 12 in 37. His chemistries are significant for a bilirubin of 4.3 with a direct fraction of 3.6 and AST and ALT of 88 and 164. His alkaline phosphatase is also elevated at 398. He also has a urinalysis, which is concerning for 4+ bacteria, 3+ leukocyte esterase. IMAGING DATA: The imaging includes an abdominal ultrasound, the images of which were personally reviewed by me, shows gallbladder wall thickening, stones and sludge within the gallbladder, and an enlarged duct with stones and sludge within the duct. ASSESSMENT AND PLAN: An 82-year-old male with worsening mental status and what appears to be urinary tract infection, possible cholecystitis, possible choledocholithiasis worrisome for cholangitis. Patient will subsequently be admitted to the medical service and started on broad-spectrum antibiotics to treat both his urinary tract infection and possible cholangitis, although clinically at this point in time he appears nontoxic and stable. He will have consultation by the project program manager and may likely need an ERCP to clean out his duct, after which I do feel that cholecystectomy is warranted given the other findings above. In addition, the patient is also on Xarelto and this will need to be held 48hrs prior to any surgical procedure. Patient really is unaware. I did discuss my concerns with him, but he has minimal insight into his disease process. I discussed my concerns with the hospitalist who will be admitting the patient. Will discuss more with the family in the morning. /[id number]/MODL MTDD
--- NOTE | 2017-05-19 04:45 | CPEKG ---
Heart Rate: 63 RR Interval: 952 P-R Interval: 175 QRSD Interval: 130 QT Interval: 472 QTC Interval: 484 P [place]: 0 QRS [place]: -77 T Wave [place]: 72 EKG Severity - ABNORMAL ECG - EKG Impression: ATRIAL-VENTRICULAR DUAL-PACED RHYTHM Electronically Signed By: Araseli Orozco 20-May-2017 07:52:21
[2017-05-19 07:09] LABS: % IMMATURE GRANULYOCYTES 0.8 % (0.0-1.1); ABSOLUTE IMMATURE GRANULOCYTES 0.08 10^3/uL (0.00-0.10); ADD DIFF? NO; ADD MORPH? NO; ADD SCAN? NO; ATYPICAL LYMPHOCYTE FLAG 10 (0-99); FRAGMENT RBC FLAG 0 (0-99); HEMATOCRIT 32.4 % (40.0-51.0); HEMOGLOBIN 10.9 g/dL (13.7-17.5); LEFT SHIFT FLG 0 (0-99); LIPEMIA HEMOLYSIS FLAG 80 (0-99); MEAN CELL HEMOGLOBIN 29.9 pg (27.9-34.1); MEAN CELL HEMOGLOBIN CONCENTR. 33.6 g/dL (32.4-36.7); MEAN CELL VOLUME 88.8 fL (81.5-99.8); MEAN PLATELET VOLUME 10.2 fL (8.7-11.7); PLATELET CLUMPS FLAG 40 (0-99); PLATELET COUNT 208 10^3/uL (150-400); RED BLOOD CELL COUNT 3.65 10^6/uL (4.40-6.38); RED CELL DISTRIBUTION WIDTH 15.7 % (11.5-15.2)
[2017-05-19 07:26] LABS: ALANINE AMINOTRANSFERASE 140 IU/L (21-72); ALBUMIN 2.8 g/dL (3.5-5.0); ALKALINE PHOSPHATASE 319 IU/L (38-126); ANION GAP 10 mEq/L (8-16); ASPARTATE AMINOTRANSFERASE 67 IU/L (17-59); BILIRUBIN,TOTAL 2.7 mg/dL (0.1-1.4); CALCIUM 8.5 mg/dL (8.5-10.4); CARBON DIOXIDE 19 mEq/l (22-31); CHLORIDE 109 mEq/L (97-110); CREATININE 1.5 mg/dL (0.7-1.3); GLOMERULAR FILTRATION RATE 45; GLUCOSE 104 mg/dL (70-100); POTASSIUM 4.1 mEq/L (3.5-5.2); SODIUM 138 mEq/L (134-144); TOTAL PROTEIN 5.4 g/dL (6.3-8.2)
[2017-05-19 07:32] LABS: BILIRUBIN-CONJUGATED 2.2 mg/dL (0.0-0.5); BILIRUBIN-UNCONJUGATED 0.5 mg/dL (0.0-1.1)
--- NOTE | 2017-05-19 08:43 | HOSPPROG ---
Hospitalist Progress Note Assessment/Plan: Choledocholithiasis - with suspected cholangitis. WBC's and bili trending down. -cont ceftriaxone / flagyl as seems to be improving on this regimen -F/U BCx's -GI consult for possible ERCP, pt is NPO. Discussed with Dr. Phillips -discussed with vonnie Ames, who is DPOA (orthopedic on [facility] staff), and would consent to ERCP or surgical intervention -appreciate surgical eval, likely warrants cholecystectomy, but will obtain GI consult for poss ERCP first ?UTI - covered with atbx above, await cultures FIORELLA / CKD - baseline Cr around 1.5, so near baseline. Cont IVF's for renal perfusion while NPO. H/O A fib - Holding Xarelto for possible interventions Hypothyroid - cont home meds Code status - pt has a MOST which is full code, confirmed with vonnie Ames DVT PPLX - SCD's for now, defer lovenox pending possible procedure Dispo - cont inpt Subjective: Pt feeling well. Denies pain, N/V, or diarrhea. No fevers. He denies symptoms Objective: Vital Signs Temp Pulse Resp BP Pulse Ox 36.4 C 63 14 108/63 96 05/19/17 03:18 05/19/17 03:18 05/19/17 03:18 05/19/17 03:18 05/19/17 03:18 Laboratory Results 05/19/17 06:54 05/19/17 06:54 05/18/17 05/19/17 05/20/17 05:59 05:59 05:59 Intake Total 3000 Output Total 302 Balance 2698 - Physical Exam Constitutional: no apparent distress Eyes: PERRL Ears, Nose, Mouth, Throat: moist mucous membranes Cardiovascular: regular rate and rhythym, no murmur, rub, or gallop Respiratory: no respiratory distress, clear to auscultation Gastrointestinal: normoactive bowel sounds, soft, non-tender abdomen Skin: warm Musculoskeletal: full muscle strength Neurologic: AAOx3 Psychiatric: interacting appropriately ICD10 Worksheet Patient Problems: Problems Problem Status Onset Acute on chronic renal insufficiency Acute Altered mental status Acute Cholecystitis Acute Choledocholithiasis Acute UTI (urinary tract infection) Acute Chronic Disease Mgmt/Transitional Care Acute
--- NOTE | 2017-05-19 08:57 | SOAPPROG ---
SOAP Progress Note Assessment/Plan: Assessment: Plan: 05/19/17 08:55 AMS--acute on baseline of dementia--aggravated by infection UTI--on cipro of ceftriaxone elevated LFTs with jaundice, GI consult pending a fib--on chronic anticoag--held for intervention CKD--stable range now, was elevated above baseline h/o profound orthostasis--continue florinef Subjective: Patient without complaints. Evidently more confused at NH. Dementia is baseline. Objective: Vital Signs Temp Pulse Resp BP Pulse Ox 36.4 C 63 14 108/63 96 05/19/17 03:18 05/19/17 03:18 05/19/17 03:18 05/19/17 03:18 05/19/17 03:18 Laboratory Results 05/19/17 06:54 05/19/17 06:54 05/18/17 05/19/17 05/20/17 05:59 05:59 05:59 Intake Total 3000 Output Total 302 Balance 2698 Gen: jaundiced, pleasant, initially he cant recall my name, but uses it appropriately afterwards HEENT: no acute changes Lungs: CTAB Heart: paced RRR EKG AV paced Abd + bs soft, no obvious masses or tenderness --incontinent of urine, no lesions LE's stable 3-4+ edema elevated LFTs/bilirubin US--report pending, reading notes likely cholecystitis part of the picture GI consult pending ICD10 Worksheet Patient Problems: Problems Problem Status Onset Acute on chronic renal insufficiency Acute Altered mental status Acute Cholecystitis Acute Choledocholithiasis Acute UTI (urinary tract infection) Acute Chronic Disease Mgmt/Transitional Care Acute
[2017-05-19] MEDS ORDERED: IOTHALAMATE MEG (CONRAY) 50 ML VIAL IV ONE (13:18)
[2017-05-19] MEDS ORDERED: GLUCAGON,HUMAN RECOMBINANT 1 MG VIAL ONE (13:18)
[2017-05-19] MEDS ORDERED: LR 1,000 ML IV ONE (14:28)
--- NOTE | 2017-05-19 14:52 | SOAPPROG ---
JOSE Progress Note Assessment/Plan: Assessment: 82-YEAR-OLD MALE OLD PATIENT OF MINE ADMITTED WITH CHOLECYSTITIS AND POSSIBLE CHOLEDOCHOLITHIASIS/PRESENTLY COMFORTABLE AND NONICTERIC LFTS ELEVATED/PATIENT TO HAVE ERCP AFTER HIS XARELTO IS WORN OFF ABDOMEN IS SOFT NONTENDER WITHOUT ORGANOMEGALY CHEST IS CLEAR COR IRREGULAR RHYTHM WITH A FIB WBC ELEVATED TO 14 K Plan: TREATMENT OF CHOLANGITIS/ERCP/SUBSEQUENT LAP CHOLY WHEN MEDICALLY CLEAR 05/19/17 14:50 Objective: Vital Signs Temp Pulse Resp BP Pulse Ox 36.4 C 58 L 16 151/77 H 96 05/19/17 14:31 05/19/17 14:31 05/19/17 14:31 05/19/17 14:31 05/19/17 14:31 Laboratory Results 05/19/17 06:54 05/19/17 06:54 05/18/17 05/19/17 05/20/17 05:59 05:59 05:59 Intake Total 3000 Output Total 302 Balance 4858 ICD10 Worksheet Patient Problems: Problems Problem Status Onset Acute on chronic renal insufficiency Acute Altered mental status Acute Cholecystitis Acute Choledocholithiasis Acute UTI (urinary tract infection) Acute Chronic Disease Mgmt/Transitional Care Acute
--- NOTE | 2017-05-19 15:10 | ASMTCASEMG ---
Living Arrangements What is your living Answers: Alone arrangement? Who do you live with? Type Of Residence What kind of residence do Answers: House you live in? Discharge Plan Comments Coordination Status Comments Notes: Chart reviewed and consulted w/ KRIS Durant, pt is a 82 y/o man admitted w/ cholecystitis and choledocolithasis. Needs are TBD at this time. OT is ordered and awaiting for recommendations. CM to follow. Date Signed: 05/19/2017 03:09 PM Electronically Signed By:LULU Baig
--- NOTE | 2017-05-19 15:19 | PDANEPAE ---
ANE History of Present Illness acute cholecystitis ANE Past Medical History - Cardiovascular History Hx Arrhythmias: Yes Hx CHF / Valvular Disease: No Cardiovascular History Comment: dual chamber pacer.On Xarelto for Afib/PE. HTN- not on RX now,RBBB, orthostatic hypotension. - Pulmonary History Hx COPD: No Hx Asthma/Reactive Airway Disease: No Hx Recent Upper Respiratory Infection: No Hx Oxygen in Use at Home: No Hx Sleep Apnea: No Sleep Apnea Screening Result - Last Documented: Negative Pulmonary History Comment: hx of PE 2007-on Xarelto.Pulmonary HTN by echocardiogram. - Neurologic History Neurologic History Comment: memory lapses per Dana DINKEY ENGINE FIRER's note 09/09/16 - Endocrine History Hx Diabetes: No Endocrine History Comment: hypothyroid - Renal History Hx Renal Disorders: No - Liver History Hx Hepatic Disorders: No - Neurological & Psychiatric Hx Hx Neurological and Psychiatric Disorders: No - Cancer History Hx Cancer: No - Congenital Disorder History Hx Congenital Disorders: No - GI History Hx Gastrointestinal Disorders: No - Other Health History Other Health History: R inguinal hernia - Chronic Pain History Chronic Pain: No - Surgical History Prior Surgeries: R cataract surgery 2010, pacemaker inserted. Pacemaker generator change 06/02/16. 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: [employer] Pacemaker Model: ETRINSA 8 DR-T Pacemaker Mode: DDD Date Pacemaker Last Checked: december 2016 ANE Patient History - Allergies Allergies/Adverse Reactions: No Known Allergies Allergy (Verified 09/21/16 15:44) - Home Medications Home Medications: Aspirin [Aspirin 81mg (*)] 81 mg PO DAILY 06/02/16 [Last Taken 05/18/17] Mirtazapine 15 mg PO HS 09/21/16 [Last Taken 05/18/17] Acetaminophen [Tylenol ES 500 mg (*)] 1,000 mg PO Q6 PRN 05/19/17 [Last Taken Unknown] Cholecalciferol Vit D3 [Vitamin D3 2000 units tab (OTC)] 2,000 units PO DAILY [Last Taken 05/18/17] Citalopram Hydrobromide [celeXA 10 MG] 10 mg PO DAILY 05/19/17 [Last Taken 05/18] Levothyroxine [Synthroid 100 mcg (*)] 100 mcg PO DAILY06 05/19/17 [Last Taken ] Loperamide HCl [Imodium 2 mg (*)] 2 mg PO BID PRN 05/19/17 [Last Taken Unknown] Rivaroxaban [Xarelto 15mg (*)] 15 mg PO DAILY 05/19/17 [Last Taken 05/18/17] - NPO status NPO Status: no food or drink >8 hours NPO Since - Liquids (Date): 05/19/17 NPO Since - Liquids (Time): 00:00 NPO Since - Solids (Date): 05/19/17 NPO Since - Solids (Time): 00:00 - Anes Hx Anes Hx: no prior problems - Smoking Hx Smoking Status: Never smoked - Alcohol Use Alcohol Use: None ANE Labs/Vital Signs - Labs Result Diagrams: 05/19/17 06:54 05/19/17 06:54 - Vital Signs Blood Pressure: 151/77 Heart Rate: 58 Respiratory Rate: 16 O2 Sat (%): 96 Height: 190.5 cm Weight: 100.8 kg ANE Physical Exam - Airway Neck exam: FROM Mallampati Score: Class 2 - Pulmonary Pulmonary: no respiratory distress - Cardiovascular Cardiovascular: regular rate and rhythym - ASA Status ASA Status: IV ANE Anesthesia Plan Anesthesia Plan: general endotracheal anesthesia
[2017-05-19] MEDS ORDERED: fentaNYL 100 MCG/2 ML INJ ONE (15:32)
[2017-05-19] MEDS ORDERED: LIDOCAINE 2% 5 ML SDV ONE (15:32)
[2017-05-19] MEDS ORDERED: ROCURONIUM 50 MG/5 ML VIAL ONE (15:32)
[2017-05-19] MEDS ORDERED: PROPOFOL 200 MG/20 ML VIAL ONE (15:33)
--- NOTE | 2017-05-19 16:34 | GIREPORT ---
Formerly [facility] Surgical Services - Endoscopy Department Patient Name: Adi Lizarraga Procedure Date: 05/19/2017 3:59 PM Patient Type: Inpatient Attending MD/ ER Physician: Erick Wilkinson MD Procedure: ERCP Indications: Suspected ascending cholangitis, Jaundice Providers: Erick Wilkinson MD Medicines: General Anesthesia Complications: No immediate complications. Description of Procedure: After obtaining informed consent, the scope was passed under direct vision. Throughout the proce dure, the patient's blood pressure, pulse, and oxygen saturations were monitored continuously. The Duodenalscope was introduced through the mouth, and advanced to the duodenum and used to inject contrast into the bile duct. The ERCP was accomplished without difficulty. The patient tolerated the procedure well. Findings: The scope was advanced to a normal major papilla in the descending duodenum. Examination of the pharynx, larynx and associated structures, and upper GI tract was normal. A straight Roadrunner wire was passed into the biliary tree. The short-nosed traction sphincterotome was passed over the guidewire and the bile duct was then deeply cannulated. Contrast was injected. I personally interpreted the bile duct images. Ductal flow of contrast was adequate. Image quality was adequa te. Contrast extended to the main bile duct. The main bile duct was severely dilated. The largest diameter was over 25 mm. The lower third of the main bile duct contained filling defect(s) thoug ht to be a stone and sludge. A 6 mm biliary sphincterotomy was made with a traction (standard) sphincterotome using ERBE electrocautery. There was no post-sphincterotomy bleeding. The biliary tree was swept with a 12 mm balloon and 15 mm balloon starting at the bifurcation. Sludge was swept f rom the duct. Many stones were removed. No stones remained. Estimated Blood Loss: Estimated blood loss: none. Post Op Diagnosis: - A filling defect consistent with a stone and sludge was seen on the cholangiogram. - The entire main bile duct was severely dilated likely nearly 3 cm in diameter. - Choledocholithiasis was found. Complete removal was accomplished by biliary sphincterotomy and numerous balloon sweeps. - A biliary sphincterotomy was performed. - The biliary tree was swept. Recommendation: - Avoid aspirin and nonsteroidal anti-inflammatory medicines for 2 weeks. - Return patient to [facility] for ongoing care. - Clear liquid diet. - Surgical consultation for consideration of cholecystectomy. - Thank you for allowing me to participate in the care of this patient. - Resume Xarelto (rivaroxaban) at prior dose no sooner than 3 days, and at disgression of surgic al service. Attending Participation: I personally performed the entire procedure. I personally performed the entire procedure without the assistance of a fellow, resident or surgical garment assembly supervisor. Erick Wilkinson MD Erick Wilkinson MD 05/19/2017 4:33:47 PM Number of Addenda: 0 Note Initiated On: 05/19/2017 3:59 PM [email or web address]
[2017-05-19] MEDS ORDERED: NALOXONE HCL 0.4 MG/ML INJ IVP PRN (16:45)
--- NOTE | 2017-05-19 16:47 | POSTANESTH ---
Post Anesthetic Evaluation Cardiovascular Status: Normal, Stable Respiratory Status: Normal, Stable Level of Consciousness/Mental Status: Can Participate in Eval Pain Control: Adequate, Prn Tx Ordered Nausea/Vomiting Control: Adequate, Prn Tx Ordered Complications Possibly Related to Anesthesia: None Noted (mental state baseline , pacemaker interrogated)
--- NOTE | 2017-05-19 17:22 | SOAPPROG ---
SOAP Progress Note Assessment/Plan: Assessmentu/plan: 82 yo male with choledocholithiasis s/p ERCP where many stones were removed trend lfts check lipase in am plan for lap samm cont npo. OR tomorrow versus monday discussed with patients son and mdpoa 05/19/17 17:19 Objective: Vital Signs Temp Pulse Resp BP Pulse Ox 36.5 C 58 L 17 155/94 H 96 05/19/17 17:15 05/19/17 15:23 05/19/17 17:15 05/19/17 17:09 05/19/17 17:15 Laboratory Results 05/19/17 06:54 05/19/17 06:54 05/18/17 05/19/17 05/20/17 05:59 05:59 05:59 Intake Total 3000 Output Total 302 Balance 2698 ICD10 Worksheet Patient Problems: Problems Problem Status Onset Acute on chronic renal insufficiency Acute Altered mental status Acute Cholecystitis Acute Choledocholithiasis Acute UTI (urinary tract infection) Acute Chronic Disease Mgmt/Transitional Care Acute
--- NOTE | 2017-05-19 19:32 | GCON ---
[f rep st] CONSULTATION GASTROENTEROLOGY CONSULTATION DATE OF CONSULTATION: 05/19/2017 REFERRING PHYSICIAN: CELESTE Batista REASON FOR CONSULTATION: Elevated LFTs. HISTORY OF PRESENT ILLNESS: This is an 82-year-old male with dementia who presented from a nursing [facility] yesterday evening with significant fatigue. The patient is quite confused at baseline and with m e has no complaints. His son also notes that he had been quite tired and sleeping quite a bit more o vidhi the last week or so. After admission, evaluation was noted to have significant elevation of his LFTs including his bilirubin and ultrasound showed stones and sludge in the gallbladder along with a dilated common bile duct. The patient notes he has no abdominal pain, fevers, chills, nausea, vomiti ng, or change in bowel habits, although he does have significant dementia. PAST MEDICAL HISTORY: 1. Atrial fibrillation for which he is on Xarelto. His last dose was yesterday morning 15 mg. 2. Dementia as noted. 3. Hypothyroidism. ALLERGIES: No known drug allergies. HOME MEDICATIONS: 1. Florinef. 2. Levothyroxine 88 mcg daily. 3. Xarelto 15 mg daily. Last dose was the morning of May 18. 4. Aspirin 81 mg daily. Last dose May 18. 5. Mirtazapine 15 mg at night. 6. Celexa. SOCIAL HISTORY: Unobtainable, although notes mention he was a former smoker. FAMILY HISTORY: The patient is unable to provide but both of his sons whom I spoke to are in good he alth. PAST SURGICAL HISTORY: There is reported history of hernia repair. REVIEW OF SYSTEMS: 10-point review of systems is negative although, again, the patient is a poor his dajuan. PHYSICAL EXAM: VITALS: Blood pressure 151/77. Heart rate 58. Respiratory rate 16. Saturating 96% on room air. Temperature 36.4. GENERAL: This is an elderly male, in no acute distress. EYES: Th ere is no obvious scleral icterus. HENT: Moist mucous membranes. CARDIOVASCULAR: Regular rate and rhythm. The patient does have a pacemaker in place over his left chest. RESPIRATORY: Clear to aus cultation anteriorly. GASTROINTESTINAL: Soft, nontender, nondistended, positive bowel sounds, no te nderness over the liver edge with deep palpation. SKIN: Warm with no rash. MUSCULOSKELETAL: Sue l strength bilaterally. NEUROLOGIC: Again, as above. He is fairly confused and oriented to name on ly. REVIEW OF DATA: Laboratory studies from today are notable for a white count of 9.6, hematocrit 32, p latelets of 208, with a significant left shift, neutrophils 7.36. That is down from a white blood ce ll count of 15.83 last night and hematocrit of 37. Sodium 138, potassium 4.1, creatinine 1.5. Bilir ubin is 2.7, down from 4.3 last night. ALT 140, AST 67, alkaline phosphatase 319, albumin 2.8. Abdo edwin ultrasound May 19 at midnight showed gallbladder wall thickening with stones and sludge s uggesting cholecystitis. Echogenic material in the common duct could be related to stones and/or slu dge. Significant dilation of the common bile duct. ASSESSMENT/PLAN: This is an 82-year-old male with advanced dementia, on Xarelto with last dose appro ximately 34 hours ago who has clinically cholangitis based on suspected infection with elevated white blood cell count, jaundice, and ultrasound finding of sludge and stones in the common bile duct. Ur gent ERCP is indicated to clear his ducts. This will be performed today. He is already appropriatel y on antibiotics. Cholecystectomy will likely be recommended during this hospital admission. /[id number]/MODL
[2017-05-19] MEDS: MELATONIN 3 MG TAB PO PRN (22:44)
[2017-05-20 04:43] LABS: % IMMATURE GRANULYOCYTES 1.1 % (0.0-1.1); ABSOLUTE IMMATURE GRANULOCYTES 0.11 10^3/uL (0.00-0.10); ADD DIFF? NO; ADD MORPH? NO; ADD SCAN? NO; ATYPICAL LYMPHOCYTE FLAG 0 (0-99); FRAGMENT RBC FLAG 0 (0-99); HEMATOCRIT 35.4 % (40.0-51.0); HEMOGLOBIN 11.5 g/dL (13.7-17.5); LEFT SHIFT FLG 10 (0-99); LIPEMIA HEMOLYSIS FLAG 80 (0-99); MEAN CELL HEMOGLOBIN 29.6 pg (27.9-34.1); MEAN CELL HEMOGLOBIN CONCENTR. 32.5 g/dL (32.4-36.7); MEAN PLATELET VOLUME 10.8 fL (8.7-11.7); PLATELET CLUMPS FLAG 10 (0-99); PLATELET COUNT 238 10^3/uL (150-400); RED BLOOD CELL COUNT 3.89 10^6/uL (4.40-6.38); RED CELL DISTRIBUTION WIDTH 15.8 % (11.5-15.2)
[2017-05-20 05:03] LABS: ALANINE AMINOTRANSFERASE 129 IU/L (21-72); ALBUMIN 3.1 g/dL (3.5-5.0); ALKALINE PHOSPHATASE 329 IU/L (38-126); ANION GAP 11 mEq/L (8-16); ASPARTATE AMINOTRANSFERASE 45 IU/L (17-59); BILIRUBIN,TOTAL 1.5 mg/dL (0.1-1.4); CALCIUM 9.1 mg/dL (8.5-10.4); CARBON DIOXIDE 19 mEq/l (22-31); CHLORIDE 109 mEq/L (97-110); CREATININE 1.4 mg/dL (0.7-1.3); GLOMERULAR FILTRATION RATE 48; GLUCOSE 128 mg/dL (70-100); POTASSIUM 5.1 mEq/L (3.5-5.2); SODIUM 139 mEq/L (134-144); TOTAL PROTEIN 5.9 g/dL (6.3-8.2)
--- NOTE | 2017-05-20 10:37 | SOAPPROG ---
SOAP Progress Note Assessment/Plan: Assessment: Plan: 05/20/17 10:37 Choledocholithiasis: s/p ERCP yesterday with removal of multiple stones. WBC stable. LFTs improving. Afebrile. Plan for lap samm today. Atrial fibrillation: in sinus rhythm due to pacer. Off Eliquis following ERCP and anticipated surgery UTI: preliminary cx with gram neg augusto, lactose [employer]. On ceftriaxone. Dementia: baseline unknown, but seems bright, alert this morning. DVT prophylaxis: KIANNA hose in place while he is off Eliquis. Dispo: possibly home tomorrow, depending on how he does post-op Subjective: Sitting up in chair, pleasant, awake, no complaints. About to go down for cholecystectomy. Objective: Vital Signs Temp Pulse Resp BP Pulse Ox 36.6 C 76 14 125/69 H 91 L 05/20/17 04:14 05/20/17 04:14 05/20/17 04:14 05/20/17 04:14 05/20/17 04:14 Laboratory Results 05/20/17 04:18 05/20/17 04:18 05/19/17 05/20/17 05/21/17 05:59 05:59 05:59 Intake Total 3000 300 Output Total 302 40 Balance 2698 260 General: well-appearing, pleasant, awake Neck: no masses, adenopathy Lungs: clear Cardiovascular: RRR, pacer noted L upper chest Abdomen: soft, NT Extremities: 1+ edema ICD10 Worksheet Patient Problems: Problems Problem Status Onset Acute on chronic renal insufficiency Acute Altered mental status Acute Cholecystitis Acute Choledocholithiasis Acute UTI (urinary tract infection) Acute Chronic Disease Mgmt/Transitional Care Acute
--- NOTE | 2017-05-20 10:53 | PDHPUP ---
History & Physical Update H&P update statement: This history and physical update is based on an assessment of the patient which was completed after admission or registration (within 24 hours), but prior to the surgery/procedure. H&P update: H&P reviewed & patient examined, no change in patient's condition since H&P completed
[2017-05-20] MEDS ORDERED: BUPIVACAINE 0.25% 30 ML SDV ONE (11:00)
--- NOTE | 2017-05-20 11:15 | PDANEPAE ---
ANE History of Present Illness 82 yo male with biliary stones for lap samm. ANE Past Medical History - Cardiovascular History Hx Hypertension: Yes Hx Arrhythmias: Yes Hx CHF / Valvular Disease: No Cardiovascular History Comment: dual chamber pacer.On Xarelto for Afib/PE. HTN- not on RX now,RBBB, orthostatic hypotension. - Pulmonary History Hx COPD: No Hx Asthma/Reactive Airway Disease: No Hx Recent Upper Respiratory Infection: No Hx Oxygen in Use at Home: No Hx Sleep Apnea: No Sleep Apnea Screening Result - Last Documented: Negative Pulmonary History Comment: hx of PE 2007-on Xarelto.Pulmonary HTN by echocardiogram. - Neurologic History Neurologic History Comment: memory lapses per [facility] ICER's note 09/09/16 - Endocrine History Hx Diabetes: No Endocrine History Comment: hypothyroid - Renal History Hx Renal Disorders: No - Liver History Hx Hepatic Disorders: No - Neurological & Psychiatric Hx Hx Neurological and Psychiatric Disorders: No - Cancer History Hx Cancer: No - Congenital Disorder History Hx Congenital Disorders: No - GI History Hx Gastrointestinal Disorders: No - Other Health History Other Health History: R inguinal hernia - Chronic Pain History Chronic Pain: No - Surgical History Prior Surgeries: R cataract surgery 2010, pacemaker inserted. Pacemaker generator change 06/02/16. ANE Review of Systems Review of Systems: - Pacemaker Pacemaker Type: Bi-Ventricular Pacemaker Brooch And Bracelet Maker: Mixercast Pacemaker Model: Etrinsa 8 DR-T Pacemaker Mode: DDD Date Pacemaker Last Checked: december 2016 ANE Patient History - Allergies Allergies/Adverse Reactions: No Known Allergies Allergy (Verified 09/21/16 15:44) - Home Medications Home medications: home medication list seen and reviewed Home Medications: Aspirin [Aspirin 81mg (*)] 81 mg PO DAILY 06/02/16 [Last Taken 05/18/17] Mirtazapine 15 mg PO HS 09/21/16 [Last Taken 05/18/17] Acetaminophen [Tylenol ES 500 mg (*)] 1,000 mg PO Q6 PRN 05/19/17 [Last Taken Unknown] Cholecalciferol Vit D3 [Vitamin D3 2000 units tab (OTC)] 2,000 units PO DAILY [Last Taken 05/18/17] Citalopram Hydrobromide [celeXA 10 MG] 10 mg PO DAILY 05/19/17 [Last Taken 05/18] Levothyroxine [Synthroid 100 mcg (*)] 100 mcg PO DAILY06 05/19/17 [Last Taken ] Loperamide HCl [Imodium 2 mg (*)] 2 mg PO BID PRN 05/19/17 [Last Taken Unknown] Rivaroxaban [Xarelto 15mg (*)] 15 mg PO DAILY 05/19/17 [Last Taken 05/18/17] - NPO status NPO Status: no food or drink >8 hours NPO Since - Liquids (Date): 05/20/17 NPO Since - Liquids (Time): 00:00 NPO Since - Solids (Date): 05/20/17 NPO Since - Solids (Time): 00:00 - Smoking Hx Smoking Status: Never smoked - Alcohol Use Alcohol Use: None ANE Labs/Vital Signs - Labs Result Diagrams: 05/20/17 04:18 05/20/17 04:18 - Vital Signs Blood Pressure: 156/87 Heart Rate: 76 Respiratory Rate: 14 O2 Sat (%): 91 Height: 190.5 cm Weight: 100.8 kg ANE Physical Exam - Airway Mallampati Score: Class 2 Mouth exam: normal dental/mouth exam - Pulmonary Pulmonary: clear to auscultation - Cardiovascular Cardiovascular: regular rate and rhythym (paced) - ASA Status ASA Status: III, E
[2017-05-20] MEDS ORDERED: PROPOFOL/EMULSION 500 MG/50 ML BOTTLE IV ONE (11:18)
[2017-05-20] MEDS ORDERED: fentaNYL 100 MCG/2 ML INJ ONE (11:18)
[2017-05-20] MEDS ORDERED: LIDOCAINE 2% 5 ML SDV ONE (12:10)
[2017-05-20] MEDS ORDERED: ROCURONIUM 50 MG/5 ML VIAL ONE (12:11)
[2017-05-20] MEDS ORDERED: DEXAMETHASONE 4 MG/ML VIAL ONE (12:11)
[2017-05-20] MEDS ORDERED: PROPOFOL 200 MG/20 ML VIAL ONE (12:11)
[2017-05-20] MEDS ORDERED: NALOXONE HCL 0.4 MG/ML INJ IVP PRN (12:22)
[2017-05-20] MEDS ORDERED: fentaNYL 100 MCG/2 ML INJ IVP PRN (12:22)
[2017-05-20] MEDS ORDERED: LR 250 ML IV PRN (12:22)
[2017-05-20] MEDS ORDERED: ACETAMINOPHEN 500 MG TAB PO PRN (12:22)
[2017-05-20] MEDS ORDERED: ONDANSETRON 4 MG/2 ML VIAL IVP PRN (12:22)
--- NOTE | 2017-05-20 12:40 | POSTOPPROG ---
Post Op Note Date of Operation: 05/20/17 Surgeon: Michael Foster Anesthesiologist: Nadine Anesthesia: GET(General Endotracheal) Pre-op Diagnosis: Cholecystitis, choledocholithiasis Post-op Diagnosis: same Procedure: Lap samm Findings: Critical view, many adhesions, edema Inf/Abcess present in the surg proc area at time of surgery?: No EBL: Minimal Specimen(s): GB
[2017-05-20] MEDS ORDERED: oxyCODONE IR 5 MG TAB PO PRN (12:41)
--- NOTE | 2017-05-20 13:01 | POSTANESTH ---
Post Anesthetic Evaluation Cardiovascular Status: Normal, Stable, Other, See Comment (Magnet removed after leads attached in PACU. Pt continued with paced rhythm. Pacer rep will interrogate prior to PACU discharge.) Respiratory Status: Normal, Stable Level of Consciousness/Mental Status: Other, See Comment (Pt confused, but pleasant.) Pain Control: Adequate, Prn Tx Ordered Nausea/Vomiting Control: Adequate, Prn Tx Ordered Complications Possibly Related to Anesthesia: None Noted
--- NOTE | 2017-05-20 13:36 | SOAPPROG ---
SOQUINTEN Progress Note Assessment/Plan: Assessment: 1. Acute/chronic cholecystitis; S/P lap samm today. 2. Choledocholithiasis; S/P ERCP, papillotomy and CBD stone/sludge extraction . Plan: 1. Post-op care per Dr. Foster. 2. Will sign off today, please call for any post-op GI issues. Srikanth Shah MD 05/20/17 13:33 Subjective: CC: Cholelithiasis, S/P Lap Samm today. Interim HPI: Patient S/P Lap Samm which revealed acute/chronic cholecystitis. Doing well in post surgical recovery unit without complaints. Objective: Vital Signs Temp Pulse Resp BP Pulse Ox 36.6 C 73 19 152/87 H 98 05/20/17 13:22 05/20/17 13:22 05/20/17 13:26 05/20/17 13:26 05/20/17 13:26 Laboratory Results 05/20/17 04:18 05/20/17 04:18 05/19/17 05/20/17 05/21/17 05:59 05:59 05:59 Intake Total 3000 300 900 Output Total 302 40 15 Balance 2698 260 885 Laboratory Tests 05/20/17 04:18 Total Bilirubin 1.5 H ALT 129 H Alkaline Phosphatase 329 H Total Protein 5.9 L Lipase 50 Physical Exam - Physical Exam General Appearance: alert, no apparent distress Respiratory: lungs clear, normal breath sounds Cardiac/Chest: regular rate, rhythm Abdomen: normal bowel sounds, non-tender Skin: normal color, warm/dry ICD10 Worksheet Patient Problems: Problems Problem Status Onset Acute on chronic renal insufficiency Acute Altered mental status Acute Cholecystitis Acute Choledocholithiasis Acute UTI (urinary tract infection) Acute Chronic Disease Mgmt/Transitional Care Acute
--- NOTE | 2017-05-20 16:33 | ASMTCMCOM ---
CM Note CM Note Notes: Reviewed chart re: d/c poc, pt's progress. Pt w/ acute/chronic cholecystitis, s/p lap samm today. Pt doing well post-operatively. Discharge needs remain TBD. CM will cont to follow. Date Signed: 05/20/2017 04:32 PM Electronically Signed By:Kamryn Alvarez RN
--- NOTE | 2017-05-20 21:32 | GOP ---
[f rep st] OPERATIVE REPORT DATE OF OPERATION: 05/20/2017 SURGEON: Michael Foster MD PULP PRESS TENDER: None. ANESTHESIA: General endotracheal. ANESTHESIOLOGIST: Veena Nuñez MD PREOPERATIVE DIAGNOSIS: Acute cholecystitis and choledocholithiasis. POSTOPERATIVE DIAGNOSIS: Acute cholecystitis and choledocholithiasis. PROCEDURE PERFORMED: Laparoscopic cholecystectomy. FINDINGS: Edematous gallbladder wall. Multiple adhesions to the gallbladder proper. Critical view obtained. SPECIMENS: Gallbladder. ESTIMATED BLOOD LOSS: 5 cc. DESCRIPTION OF PROCEDURE: The patient was greeted in the preoperative suite. Once again, risks, eddie efits, and alternatives were discussed. Consent was signed by his MD CONNIE as the patient has underlyi ng dementia. He was then brought back to the operative suite, placed on the OR table in a supine pos ition. After all anesthesia machines, including SCDs, were on and functioning, [facility] Organ[facility] tion time-out was performed ending with all in agreement. Antibiotics were given on-call to the oper ating room. After successful induction of general anesthesia, the patient's abdomen was widely prepp ed and draped in typical sterile fashion. I entered the abdomen via a horizontal incision inferior t o the umbilicus through which I placed a Veress needle. I insufflated with CO2 to 15 mmHg which was well tolerated by the patient. After successful insufflation, I inserted a Visiport, 12 mm port, int o that site under direct visualization. I then placed 3 additional 5 mm trocars, 1 in the subxiphoid , 2 in the right upper quadrant all under direct visualization. Once this was done, I grasped the ga llbladder and successfully retracted it over the edge of the liver. I grasped the infundibulum and u sing a combination of electrocautery and blunt dissection, I successfully took all of the adhesions o ff. Dissecting at the infundibulum I identified 2 and only 2 structures leading toward the gallbladd er. I clipped 3 proximally, 2 distally and divided both the duct and the artery with scissors. Once this was done, given the friability of the gallbladder wall, I used the Harmonic Scalpel to take the remainder of the specimen off the liver bed. Once this was done, I placed it in an EndoCatch bag an d removed it. I turned my attention toward the liver bed. I cleaned things up. I irrigated 1 L nor mal saline into the right upper quadrant noting clear effluent in the suction canister. I removed th e specimen. I then desufflated after removing all ports under visualization. I closed my infraumbili harry port using an interrupted 0 Vicryl stitch noting excellent fascial reapproximation. The skin was then closed with running 4-0 Monocryl over which Dermabond was placed. The patient was then extubat ed in the operative suite and taken to the PACU in satisfactory condition. DRAINS: None. COUNTS: All counts were reported as correct x2. /[id number]/MODL
[2017-05-21 05:40] LABS: % IMMATURE GRANULYOCYTES 0.8 % (0.0-1.1); ABSOLUTE IMMATURE GRANULOCYTES 0.11 10^3/uL (0.00-0.10); ADD DIFF? NO; ADD MORPH? NO; ADD SCAN? NO; ATYPICAL LYMPHOCYTE FLAG 10 (0-99); FRAGMENT RBC FLAG 0 (0-99); HEMATOCRIT 33.4 % (40.0-51.0); HEMOGLOBIN 10.9 g/dL (13.7-17.5); LEFT SHIFT FLG 0 (0-99); LIPEMIA HEMOLYSIS FLAG 80 (0-99); MEAN CELL HEMOGLOBIN 29.7 pg (27.9-34.1); MEAN CELL HEMOGLOBIN CONCENTR. 32.6 g/dL (32.4-36.7); MEAN PLATELET VOLUME 10.5 fL (8.7-11.7); PLATELET CLUMPS FLAG 0 (0-99); PLATELET COUNT 236 10^3/uL (150-400); RED BLOOD CELL COUNT 3.67 10^6/uL (4.40-6.38); RED CELL DISTRIBUTION WIDTH 15.7 % (11.5-15.2)
[2017-05-21 05:58] LABS: ALANINE AMINOTRANSFERASE 102 IU/L (21-72); ALBUMIN 2.8 g/dL (3.5-5.0); ALKALINE PHOSPHATASE 254 IU/L (38-126); ANION GAP 9 mEq/L (8-16); ASPARTATE AMINOTRANSFERASE 39 IU/L (17-59); BILIRUBIN,TOTAL 1.2 mg/dL (0.1-1.4); CALCIUM 8.7 mg/dL (8.5-10.4); CARBON DIOXIDE 20 mEq/l (22-31); CHLORIDE 110 mEq/L (97-110); CREATININE 1.2 mg/dL (0.7-1.3); GLOMERULAR FILTRATION RATE 58; GLUCOSE 115 mg/dL (70-100); POTASSIUM 4.4 mEq/L (3.5-5.2); SODIUM 139 mEq/L (134-144); TOTAL PROTEIN 5.5 g/dL (6.3-8.2)
[2017-05-21] MEDS: ACETAMINOPHEN 325 MG TAB PO PRN ×2 (08:16→22:24)
--- NOTE | 2017-05-21 09:15 | SOAPPROG ---
JOSE Progress Note Assessment/Plan: Assessmentu/plan: 82 yo male with choledocholithiasis Lap samm yesterday for acute cholecystitis, abdomen is appropriately tender today. Incision sites are clean dry and intact. We will see how he does with food this morning but if he does well no issues barring discharge from my perspective follow up with me in the clinic in 10-14 days 05/19/17 17:19 05/21/17 09:14 Subjective: No complaints Objective: Vital Signs Temp Pulse Resp BP Pulse Ox 36.4 C 73 14 135/81 H 92 05/21/17 08:00 05/21/17 08:00 05/21/17 08:00 05/21/17 08:00 05/21/17 08:00 Laboratory Results 05/21/17 05:16 05/21/17 05:16 05/20/17 05/21/17 05/22/17 05:59 05:59 05:59 Intake Total 300 1900 Output Total 40 165 Balance 260 1735 ICD10 Worksheet Patient Problems: Problems Problem Status Onset Acute on chronic renal insufficiency Acute Altered mental status Acute Cholecystitis Acute Choledocholithiasis Acute UTI (urinary tract infection) Acute Chronic Disease Mgmt/Transitional Care Acute
--- NOTE | 2017-05-21 13:02 | SOAPPROG ---
SOAP Progress Note Assessment/Plan: Assessment: Plan: 05/20/17 10:37 Choledocholithiasis: s/p ERCP yesterday with removal of multiple stones. WBC stable. LFTs improving. Afebrile. Plan for lap samm today. Atrial fibrillation: in sinus rhythm due to pacer. Off Eliquis following ERCP and anticipated surgery UTI: preliminary cx with gram neg augusto, lactose cream beater. On ceftriaxone. Dementia: baseline unknown, but seems bright, alert this morning. DVT prophylaxis: KIANNA hose in place while he is off Eliquis. Dispo: possibly home tomorrow, depending on how he does post-op 05/21/17 13:02 Choledocholithiasis: s/p ERCP 05/19, lap samm 05/20. Did eat this morning and tolerated it. Ok for d/c from surgical standpoint, but not doing well enough from PT standpoint. Required 2 person assist today for transfer. Not safe to return to memory care. SNF rehab recommended. Atrial fibrillation: in sinus rhythm. GI request pt remain off Eliquis for 3 days following ERCP. Will resume tomorrow. UTI: cx shows E. coli, sensitive to ceftriaxone. Note increase in WBC today, possibly in response to surgery. Will continue ceftriaxone for now. Remains afebrile. Dementia: more apparent today. Not really following conversation, mood a little down from yesterday. DVT prophylaxis: KIANNA hose. Resume Eliquis tomorrow. Dispo: Anticipate d/c to SNF rehab in next day or two. DC planning aware of PT recommendations. 05/21/17 13:05 Subjective: Sitting in chair, not feeling very well. Didn't recall that he had oatmeal this morning for breakfast and did ok with it per RN. Doesn't think he's had anything to eat. Denies any abdominal pain. Objective: Vital Signs Temp Pulse Resp BP Pulse Ox 36.3 C 56 L 16 103/51 L 95 05/21/17 12:13 05/21/17 12:13 05/21/17 12:13 05/21/17 12:13 05/21/17 12:13 Laboratory Results 05/21/17 05:16 05/21/17 05:16 05/20/17 05/21/17 05/22/17 05:59 05:59 05:59 Intake Total 300 1900 Output Total 40 165 Balance 260 1735 General: Sitting in chair, awake, confused Neck: no masses, adenopathy Lungs: clear Cardiovascular: RRR Abdomen: +bowel sounds, soft, NT Extremities: no edema ICD10 Worksheet Patient Problems: Problems Problem Status Onset Acute on chronic renal insufficiency Acute Altered mental status Acute Cholecystitis Acute Choledocholithiasis Acute UTI (urinary tract infection) Acute Chronic Disease Mgmt/Transitional Care Acute
--- NOTE | 2017-05-21 16:27 | ASMTCMCOM ---
CM Note CM Note Notes: Reviewed chart re: d/c poc, pt's progress. Spoke w/ PT/OT, both rec SNF - pt very unstable on feet, confused. Pt likely unable to return to [facility] upon d/c. Per son Kwaku, pt has previously been to [facility]. Will fax new referral. CM will cont to follow. Date Signed: 05/21/2017 04:26 PM Electronically Signed By:Kamryn Alvarez RN
[2017-05-21] MEDS: MELATONIN 3 MG TAB PO PRN (22:25)
[2017-05-22] MEDS ORDERED: LOPERAMIDE HCL 2 MG CAP PO PRN (08:30)
[2017-05-22] MEDS ORDERED: LEVOTHYROXINE 100 MCG TAB PO SCH (08:30)
--- NOTE | 2017-05-22 08:46 | SOAPPROG ---
JOSE Progress Note Assessment/Plan: Assessment: Plan: 05/19/17 08:55 AMS--acute on baseline of dementia--aggravated by infection UTI--on cipro of ceftriaxone elevated LFTs with jaundice, GI consult pending a fib--on chronic anticoag--held for intervention CKD--stable range now, was elevated above baseline h/o profound orthostasis--continue florinef 05/22/17 08:44 choledocholithiasis--s/p ERCP and lap samm--doing well jaundice--resolved uti--e coli--presume prostatitis also a concurrent issue, will switch to po cephalexin and continue for 1 month of therapy elevated LFT's improved depression/anxiety/insomnia--resume mirtazapine and celexa hypo T resume levothyroxine weakness, memory loss--SNF today and then return to memory care at [facility] when somewhat stronger Subjective: Patient complains of mild abdominal soreness after lap smam. His sleep has been poor. Eating ok. Will need SNF given weakness prior to returning to [facility] Objective: Vital Signs Temp Pulse Resp BP Pulse Ox 36.3 C 65 14 146/88 H 97 05/22/17 00:00 05/22/17 00:00 05/22/17 00:00 05/22/17 00:00 05/22/17 00:00 Laboratory Results 05/21/17 05:16 05/21/17 05:16 05/21/17 05/22/17 05/23/17 05:59 05:59 05:59 Intake Total 1900 1230 Output Total 165 1750 Balance 1735 -520 Gen: NAD, pleasant, tired Lungs: diminished by stable BS Heart: paced RRR Abd+ bs soft, mild TTP LE's stable 2+ edema ceftriaxone and flagyl IV currently. BCx negative UCx e coli sensitive to 1st generation ceph's ICD10 Worksheet Patient Problems: Problems Problem Status Onset Acute on chronic renal insufficiency Acute Altered mental status Acute Cholecystitis Acute Choledocholithiasis Acute UTI (urinary tract infection) Acute Chronic Disease Mgmt/Transitional Care Acute
[2017-05-22] MEDS: FLUDROCORTISONE ACETATE 0.1 MG TAB PO SCH ×2 (08:51→11:59)
--- NOTE | 2017-05-22 08:51 | PDIAF ---
- Diagnosis Diagnosis: UTI with AMS, memory loss, choledocholithiasis s/p ERCP and lapchole Code Status: Full Code - Medication Management Discharge Medications: Medications to Continue on Transfer Aspirin [Aspirin 81mg (*)] 81 mg PO DAILY 06/02/16 [Last Taken 05/18/17] Mirtazapine 15 mg PO HS 09/21/16 [Last Taken 05/18/17] Acetaminophen [Tylenol ES 500 mg (*)] 1,000 mg PO Q6 PRN 05/19/17 [Last Taken Unknown] Cholecalciferol Vit D3 [Vitamin D3 2000 units tab (OTC)] 2,000 units PO DAILY [Last Taken 05/18/17] Citalopram Hydrobromide [celeXA 10 MG] 10 mg PO DAILY 05/19/17 [Last Taken 05/18] Loperamide HCl [Imodium 2 mg (*)] 2 mg PO BID PRN 05/19/17 [Last Taken Unknown] Rivaroxaban [Xarelto 15mg (*)] 15 mg PO DAILY 05/19/17 [Last Taken 05/18/17] Acetaminophen [Tylenol 325mg (*)] 650 mg PO Q4HRS PRN tab 05/22/17 [Last Taken Unknown] Cephalexin [Keflex (*)] 500 mg PO Q8 cap 05/22/17 [Last Taken Unknown] Fludrocortisone Acetate [Florinef] 0.1 mg PO DAILY tab 05/22/17 [Last Taken Unknown] Levothyroxine [Synthroid 100 mcg (*)] 100 mcg PO DAILY06 #90 tab 05/22/17 [Last Taken Unknown] Melatonin [Melatonin 3 MG (*)] 3 mg PO HS PRN tab 05/22/17 [Last Taken Unknown] Ondansetron Odt [Zofran Odt 4 mg (*)] 4 mg PO Q4HRS PRN tab 05/22/17 [Last Taken Unknown] Fdc Antibiotics: cephalexin 500 mg TID Fdc Antibiotic Stop Date: 06/16/17 Discharge Medications: Refer to the Discharge Home Medication list for PRN reason. PICC Care - Routine: N/A - Orders Services needed: Registered Nurse, Physical Therapy, Occupational Therapy Diet Recommendation: no restrictions on diet Diet Texture: Regular Texture Diet Weigh Patient: weekly Anderson: No - Labs/Radiology CBC Date: 05/26/17 (please fax to [phone]) CMP Date: 05/26/17 - Follow Up Care Current Providers and Referrals: Ricky Yadav MD [Primary Care Provider] - As per Instructions Michael Foster MD [Medical Doctor] - follow up in 10 days
[2017-05-22] MEDS ORDERED: NON-FORMULARY NEW DRUG (Citalopram Hydrobromide [Celexa 10 Mg] 10 MG) PO SCH (09:00)
[2017-05-22] MEDS ORDERED: ASPIRIN 81 MG CHEWABLE TAB PO SCH (09:00)
[2017-05-22] MEDS ORDERED: CHOLECALCIFEROL VIT D3 2,000 UNITS TAB/CAP PO SCH (09:00)
[2017-05-22] MEDS ORDERED: RIVAROXABAN 15 MG TAB PO SCH (09:00)
[2017-05-22] MEDS ORDERED: CITALOPRAM 20 MG TAB PO SCH (09:00)
[2017-05-22 09:09] VITALS: BP 128/77; PULSE 74; RESP 18; TEMP 97.7; O2SAT 91
--- NOTE | 2017-05-22 09:25 | GDS ---
[f rep st] DISCHARGE SUMMARY Transitioned to fdc facility 05/22/2017. REASON FOR ADMISSION: Acute mental status changes, weakness, abnormal blood work. DISCHARGE DIAGNOSES: 1. Choledocholithiasis treated with endoscopic retrograde cholangiopancreatography to remove gall sl udge and stones, and a laparoscopic cholecystectomy. 2. Urinary tract infection, positive for Escherichia coli, sensitive to first-generation cephalospor ins. 3. Acute on chronic memory loss. 4. Hypothyroid. 5. Depression/anxiety/insomnia. HOSPITAL COURSE: Patient was admitted to the ER due to increasing confusion and weakness at his [facility], [place]. He was found to be jaundiced, elevated liver functions, and a positive urin e culture. Imaging showed a bile duct dilatation with probable sludge/stones in the common bile duct . He had a GI consultation. Dr. Wilkinson performed an ERCP and cleared out the bile duct. Dr. Michael palumbo performed a laparoscopic cholecystectomy on Monday, June 19. The patient has done wel l the past 48 hours status post surgery. He has had some difficulties with insomnia. His regular de pression, anxiety, and insomnia medicines have been resumed. Anticipate this will improve things. H is jaundice has resolved. Liver functions are improving. He was initially treated with Cipro and ce ftriaxone given cultures identifying sensitivity to first-generation cephalosporin. He will be place d on cephalexin t.i.d. for 1 month, presuming there is some prostatitis involved as well. He will tr ansition to fdc, presumably at [facility], and then return to memory care at [facility] when he is improving. /[id number]/MODL
--- NOTE | 2017-05-22 10:34 | ASMTCMCOM ---
CM Note CM Note Notes: Pateint medically cleared for dc. Spoke with Crystal at [facility] who will accept patient and arrange 12 noon transsfer. Final orders sent. KRIS Byrd aware of time for pickup. CM to follow should needs arise. Date Signed: 05/22/2017 10:33 AM Electronically Signed By:Teresa Graham RN
[2017-05-22] MEDS ORDERED: CEPHALEXIN 500 MG CAP PO SCH (14:00)
--- NOTE | 2017-05-22 15:30 | ASDISCHSUM ---
Discharge Information Plan Status:SNF Medically Cleared to Leave:05/22/2017 Discharge Date:05/22/2017 01:07 PM D/C Disposition:Nursing Home Facility ADT D/C Disposition:Nursing Home Facility Projected Discharge Date:05/22/2017 11:00 AM Transportation at D/C:Wheelchair Van Discharge Delay Reason: Follow-Up Date:05/22/2017 11:00 AM Discharge Slot: Final Diagnosis: Placement Information Referral Type:*[facility]/SNF Referral ID:[id number] Provider Name:[facility] Address 1:[address] Address 2: City:[place] Selection Factors: State:[place] Patient Contact Information Contact Name:YE Relationship:Son Address: City: [facility][1] Phone: [facility]/Zip Code: Email: Financial Information Financial Class: Primary Plan Desc:MEDICARE INPATIENT Primary Plan Number:[id number] Secondary Plan Desc:AARP/MDR SUPPLEMENT Secondary Plan Number:[id number] Assessment Information [facility] Initial CM Assessment Living Arrangements What is your living Answers: Alone arrangement? Who do you live with? Type Of Residence What kind of residence do Answers: House you live in? Discharge Plan Comments Coordination Status Comments Notes: Chart reviewed and consulted w/ Carleen, RN, pt is a 82 y/o man admitted w/ cholecystitis and choledocolithasis. Needs are TBD at this time. OT is ordered and awaiting for recommendations. CM to follow. Date Signed: 05/19/2017 03:09 PM Electronically Signed By:LULU Baig [facility] CM Progress Note CM Note CM Note Notes: Reviewed chart re: d/c poc, pt's progress. Pt w/ acute/chronic cholecystitis, s/p lap samm today. Pt doing well post-operatively. Discharge needs remain TBD. CM will cont to follow. Date Signed: 05/20/2017 04:32 PM Electronically Signed By:Kamryn Alvarez RN [facility] CM Progress Note CM Note CM Note Notes: Reviewed chart re: d/c poc, pt's progress. Spoke w/ PT/OT, both rec SNF - pt very unstable on feet, confused. Pt likely unable to return to [facility] upon d/c. Per vonnie Ames, pt has previously been to [facility]. Will fax new referral. CM will cont to follow. Date Signed: 05/21/2017 04:26 PM Electronically Signed By:Kamryn Alvarez RN [facility] Progress Note CM Note CM Note Notes: Pateint medically cleared for dc. Spoke with Crystal at [facility] who will accept patient and arrange 12 noon transsfer. Final orders sent. KRIS Byrd aware of time for pickup. CM to follow should needs arise. Date Signed: 05/22/2017 10:33 AM Electronically Signed By:Teresa Graham RN Intervention Information Intervention Type:*IM-Signed Date of Service:05/22/2017 09:40 AM Patient Type:Inpatient Staff Member:Khushi Brown Hours: Discipline: Severity: Comment:
[2017-05-22] MEDS ORDERED: MIRTAZAPINE 15 MG TAB PO SCH (21:00)
[2017-05-22] MEDS ORDERED: NON-FORMULARY NEW DRUG (Mirtazapine [Mirtazapine] 15 MG) PO SCH (21:00)
== END 2017-05-22 13:07 | DRG 418 ==
LOC: EDUNIT# → F2W 05-19 03:07
PROVIDERS: ADMIT Student in an Organized Health Care Education/Training Program; ATTEND Internal Medicine
PROC: BF131ZZ Fluoroscopy of Gallbladder and Bile Ducts using Low Osmolar Contrast (ICD-10-PCS; 2017-05-19)
PROC: 0FT44ZZ Resection of Gallbladder, Percutaneous Endoscopic Approach (ICD-10-PCS; principal; 2017-05-20 11:00)
DX: K80.37 Calculus of bile duct with acute and chronic cholangitis with obstruction (principal); N39.0 Urinary tract infection, site not specified; B96.20 Unspecified Escherichia coli [E. coli] as the cause of diseases classified elsewhere; N41.9 Inflammatory disease of prostate, unspecified; R94.5 Abnormal results of liver function studies; I48.91 Unspecified atrial fibrillation; E03.9 Hypothyroidism, unspecified; Z87.891 Personal history of nicotine dependence; I25.10 Atherosclerotic heart disease of native coronary artery without angina pectoris; Z86.711 Personal history of pulmonary embolism
CPT/HCPCS: 96365; 97116-GP; 97161-GP; 97165-GO; 97530-GP; G8978-GP-CK; G8979-GP-CI; G8987-GO-CL; G8988-GO-CJ; J0171; J0696; J1100; J1610; J2704; J3010; Q9961

== ENCOUNTER 2017-09-04 05:51 | Emergency (ER) | payer OTHER, MEDICARE ==
--- NOTE | 2017-09-04 06:01 | EDPHY ---
H & P HPI/ROS: HPI CHIEF COMPLAINT: Fall, head laceration HISTORY OF PRESENT ILLNESS: This patient very pleasant 82-year-old male, he has a history of AFib on Xarelto and aspirin, additionally he is a full code he resides at [facility] he presents emergency room after he had unwitnessed fall. He sustained a very small left occipital head laceration. The patient states he slipped and fell on a "Straw Mat" however improved reports there was no straw mat. Patient states he was getting out of a truck. To go back to bed. EMS reports that he they found him next to his bed there is a small ceramic table next to his bed he hit his head on miss. There was a pool of blood on the ground. Unclear exactly when he fell or how long he has been on the ground for. Upon arrival to the emergency room the patient is alert or x1. He tells me it is 1991. He does know that the president is [place]. Denies any complaints of pain anywhere. Past Medical History: Denies significant medical history except for AFib Past Surgical History: No recent surgery Social History: Resides at [facility], Lives locally denies drugs alcohol tobacco products. Family History: Noncontributory ROS REVIEW OF SYSTEMS: A comprehensive 10 point review of systems is otherwise negative aside from elements mentioned in the history of present illness. Exam Constitutional appears well nontoxic no acute distress triage nursing summary reviewed, vital signs reviewed, awake/alert. Eyes normal conjunctivae and sclera, EOMI, PERRLA. HENT head/neck is in a rigid cervical collar placed by EMS, no midline cervical spine pain or step-offs, very small laceration left posterior occiput, otherwise head atraumatic moist mucus membranes, no epistaxis, neck supple/ no meningismus, no raccoon eyes. Respiratory clear to auscultation bilaterally, normal breath sounds, no respiratory distress, no wheezing. Cardiovascular left chest pacemaker. rate normal, regular rhythm, no murmur, no edema, distal pulses normal. Gastrointestinal soft, non-tender, no rebound, no guarding, normal bowel sounds, no distension, no pulsatile mass. Genitourinary no CVA tenderness. Musculoskeletal no midline vertebral tenderness, full range of motion, no calf swelling, no tenderness of extremities, no meningismus, good pulses, neurovascularly intact. Skin pink, warm, & dry, no rash, skin atraumatic. Neurologic alert and orient x1., moves all 4 extremities equally, motor intact , sensory intact, CN II-XII intact, normal cerebellar, normal vision, normal speech. Psychiatric normal mood/affect. Heme/Lymph/Immune no lymphadenopathy. Differential Diagnosis: Includes but is not limited to in a particular order mechanical trip and fall, syncope, electrolyte disturbance, dehydration, intracranial bleed, skull fracture, scalp laceration Medical Decision Making:Plan for this patient IV establishment blood draw, CT head and neck for trauma, check electrolytes, EKG. And re-evaluate. Clean his wound. May need repair. Re-evaluation: EKG interpretation by me on record in [employer] system. Impression time of EKG 6:21 a.m., this is a dual paced rhythm. Otherwise unremarkable. CT scan of the head and neck without contrast for trauma are negative for acute bleed or fracture. Called to me by Dr. Infante. Additionally on the left posterior occiput there was a 4 cm vertically oriented laceration. This is been repaired with pal. 5 pal were placed. Laceration Repair Procedure: Verbal Consent was obtained, Under sterile conditions, The wound was copiously irrigated with sterile fluid, the wound was explored for foreign bodies there were none visualized, the wound was explored with a sterile glove to the base. There are no deep structures involved, including no arterial injury. FIVE PAL were placed in this patient's laceration. He had good close approximation of the wound edges. He Tolerated this well. Patient's understands to have pal removed in 7 days. Patient's blood work is reviewed. Negative troponin. EKG is nonischemic it is a paced rhythm. He has no complaints. 0703: I did re-evaluate this patient this time is resting comfortably no acute distress. His laceration has been repaired with multiple pal. The patient is adamant about getting out of here would like to go back home. He denies chest pain or shortness of breath. Denies headache. Patient's CT scans have been reviewed and are unremarkable for acute traumatic injury. Source: Patient, EMS - Personal History Tetanus Vaccine Date: 2006 - Medical/Surgical History Hx Asthma: No Hx Chronic Respiratory Disease: No Hx Diabetes: No Hx Cardiac Disease: Yes Hx Renal Disease: Yes Hx Cirrhosis: No Hx Alcoholism: No Hx HIV/AIDS: No Hx Splenectomy or Spleen Trauma: No Other PMH: OA/Afib/paced/tia/hypogonadism?/throid issues - Social History Smoking Status: Never smoked Constitutional: Initial Vital Signs Heart Rate 77 09/04/17 06:03 Respiratory Rate 20 09/04/17 06:03 Blood Pressure 151/98 H 09/04/17 06:03 O2 Sat (%) 92 09/04/17 06:03 O2 Delivery Mode Room Air Allergies/Adverse Reactions: No Known Allergies Allergy (Verified 09/04/17 06:03) Home Medications: Medication Instructions Recorded Aspirin [Aspirin 81mg (*)] 81 mg PO DAILY 06/02/16 Mirtazapine 15 mg PO HS 09/21/16 Acetaminophen [Tylenol ES 500 mg 1,000 mg PO Q6 PRN 05/19/17 (*)] Cholecalciferol Vit D3 [Vitamin D3 2,000 units PO DAILY 05/19/17 2000 units tab (OTC)] Citalopram Hydrobromide [celeXA 10 10 mg PO DAILY 05/19/17 MG] Loperamide HCl [Imodium 2 mg (*)] 2 mg PO BID PRN 05/19/17 Rivaroxaban [Xarelto 15mg (*)] 15 mg PO DAILY 05/19/17 Acetaminophen [Tylenol 325mg (*)] 650 mg PO Q4HRS PRN tab 05/22/17 Cephalexin [Keflex (*)] 500 mg PO Q8 cap 05/22/17 Fludrocortisone Acetate [Florinef] 0.1 mg PO DAILY tab 05/22/17 Levothyroxine [Synthroid 100 mcg 100 mcg PO DAILY06 #90 tab 05/22/17 (*)] Melatonin [Melatonin 3 MG (*)] 3 mg PO HS PRN tab 05/22/17 Ondansetron Odt [Zofran Odt 4 mg 4 mg PO Q4HRS PRN tab 05/22/17 (*)] Medical Decision Making - Data Points Laboratory Results: Laboratory Results 09/04/17 06:10 09/04/17 06:10 09/04/17 09/04/17 06:10 06:10 WBC 7.96 10^3/uL 10^3/uL (3.80-9.50) RBC 4.46 10^6/uL 10^6/uL (4.40-6.38) Hgb 13.3 g/dL L g/dL (13.7-17.5) Hct 39.6 % L % (40.0-51.0) MCV 88.8 fL fL (81.5-99.8) MCH 29.8 pg pg (27.9-34.1) MCHC 33.6 g/dL g/dL (32.4-36.7) RDW 13.9 % % (11.5-15.2) Plt Count 202 10^3/uL 10^3/uL (150-400) MPV 10.6 fL fL (8.7-11.7) Neut % (Auto) 60.4 % % (39.3-74.2) Lymph % (Auto) 25.1 % % (15.0-45.0) Calloway % (Auto) 10.3 % % (4.5-13.0) Eos % (Auto) 3.4 % % (0.6-7.6) Baso % (Auto) 0.5 % % (0.3-1.7) Nucleat RBC Rel Count 0.0 % % (0.0-0.2) Absolute Neuts (auto) 4.81 10^3/uL 10^3/uL (1.70-6.50) Absolute Lymphs (auto) 2.00 10^3/uL 10^3/uL (1.00-3.00) Absolute Monos (auto) 0.82 10^3/uL H 10^3/uL (0.30-0.80) Absolute Eos (auto) 0.27 10^3/uL 10^3/uL (0.03-0.40) Absolute Basos (auto) 0.04 10^3/uL 10^3/uL (0.02-0.10) Absolute Nucleated RBC 0.00 10^3/uL 10^3/uL (0-0.01) Immature Gran % 0.3 % % (0.0-1.1) Immature Gran # 0.02 10^3/uL 10^3/uL (0.00-0.10) Sodium 144 mEq/L mEq/L (135-145) Potassium 4.1 mEq/L mEq/L (3.5-5.2) Chloride 107 mEq/L mEq/L (97-110) Carbon Dioxide 26 mEq/l mEq/l (22-31) Anion Gap 11 mEq/L mEq/L (8-16) BUN 35 mg/dL H mg/dL (7-23) Creatinine 1.6 mg/dL H mg/dL (0.7-1.3) Estimated GFR 41 Glucose 95 mg/dL mg/dL (70-100) Calcium 9.1 mg/dL mg/dL (8.5-10.4) Troponin I < 0.012 ng/mL ng/mL (0.000-0.034) Departure - Departure Disposition: Home, Routine, Self-Care Clinical Impression: Fall Qualifiers: Encounter type: initial encounter Qualified Code(s): W19.XXXA - Unspecified fall, initial encounter Scalp laceration Qualifiers: Encounter type: initial encounter Qualified Code(s): S01.01XA - Laceration without foreign body of scalp, initial encounter Condition: Good Instructions: Laceration (ED), Staple Care (ED) Additional Instructions: 1. Pal need to be removed in 7 days. Referrals: Ricky Yadav MD [Primary Care Provider] - As per Instructions
[2017-09-04 06:13] LABS: PLATELET COUNT 202 10^3/uL (150-400)
--- NOTE | 2017-09-04 06:22 | CPEKG ---
Heart Rate: 66 RR Interval: 909 P-R Interval: 225 QRSD Interval: 140 QT Interval: 460 QTC Interval: 482 P Wister: 0 QRS Wister: -76 T Wave Wister: 85 EKG Severity - ABNORMAL ECG - EKG Impression: ATRIAL-VENTRICULAR DUAL-PACED RHYTHM Electronically Signed By: Vineet Desir 04-Sep-2017 07:30:00
[2017-09-04 09:23] VITALS: BP 140/74; PULSE 64; RESP 16; TEMP 98.2; O2SAT 97
== END 2017-09-04 09:25 | disposition home or self-care (01) ==
LOC: EDUNIT#
PROC: 0HQ0XZZ Repair Scalp Skin, External Approach (ICD-10-PCS; principal; 2017-09-04)
DX: S01.01XA Laceration without foreign body of scalp, initial encounter (principal); Z79.01 Long term (current) use of anticoagulants; Z79.82 Long term (current) use of aspirin; W01.198A Fall on same level from slipping, tripping and stumbling with subsequent striking against other object, initial encounter

== ENCOUNTER 2017-11-23 23:19 | Inpatient (IN) | payer OTHER, MEDICARE ==
[2017-11-23] MEDS ORDERED: PROTHROMBIN COMPLEX CONCENTRATE IV ONE (23:30)
--- NOTE | 2017-11-23 23:30 | CPEKG ---
Heart Rate: 67 RR Interval: 896 P-R Interval: 289 QRSD Interval: 132 QT Interval: 468 QTC Interval: 494 QRS Treichlers: -18 T Wave Treichlers: 259 EKG Severity - ABNORMAL ECG - EKG Impression: ATRIAL-PACED RHYTHM EKG Impression: RIGHT BUNDLE BRANCH BLOCK EKG Impression: ST DEPRESSION, CONSIDER ISCHEMIA, ANT-LAT LDS Electronically Signed By: Mak Lowe 24-Nov-2017 06:02:19
[2017-11-23 23:40] LABS: PLATELET COUNT 183 10^3/uL (150-400)
[2017-11-23] MEDS ORDERED: TRANEXAMIC ACID 1,000 MG in NS 100 ML IV ONE (23:42)
[2017-11-23] MEDS ORDERED: HUMAN PROTHROMBIN COMPLX(PCC) 1 UNIT/0.04 ML VIAL IV ONE (23:42)
[2017-11-23] MEDS ORDERED: TRANEXAMIC ACID 1,000 MG in NS 500 ML IV ONE (23:42)
[2017-11-23] MEDS ORDERED: TRANEXAMIC ACID 1,000 MG/10 ML VIAL ONE (23:43)
[2017-11-23 23:50] LABS: INR 1.76 (0.83-1.16); PROTIME(PATIENT) 20.6 SEC (12.0-15.0)
--- NOTE | 2017-11-23 23:58 | EDPHY ---
H & P Stated Complaint: GIB since this am Time Seen by Provider: 11/23/17 23:35 HPI/ROS: Chief Complaint: GI bleeding HPI: 82-year-old male presenting from his assisted residence passing bright red blood per rectum. It is unclear whether this started yesterday evening or this morning. Patient states he has multiple episodes of blood per rectum. He has a history of atrial fibrillation and is currently taking rivaroxaban. EMS was called this evening after the patient continued passed large amounts of blood per rectum. The he is complaining of weakness but has not had any fainting. No abdominal pain. No dark black bowel movements. No nausea or vomiting. No fevers or chills. Patient has a very large amount of bright lead blood on the pad his bed. ROS: 10 point Review of Systems is negative except as noted in the HPI. PMH: Atrial fibrillation, coronary artery disease Social History: No smoking, no alcohol, no recreational drug use Family History: non-contributory Physical Exam: Gen: Awake, Alert, No Distress HEENT: Nose: no rhinorrhea Eyes: PERRLA, EOMI Mouth: Moist mucosa Neck: Supple, no JVD Chest: nontender, lungs clear to auscultation Heart: S1, S2 normal, no murmur Abd: Soft, non-tender, no guarding Back: no CVA tenderness, no midline tenderness Ext: no edema, non-tender Skin: no rash Neuro: CN II-XII intact, Sensation grossly intact, Strength 5/5 in bilateral upper and lower extremities - Personal History Tetanus Vaccine Date: 2006 - Medical/Surgical History Hx Asthma: No Hx Chronic Respiratory Disease: No Hx Diabetes: No Hx Cardiac Disease: Yes Hx Renal Disease: Yes Hx Cirrhosis: No Hx Alcoholism: No Hx HIV/AIDS: No Hx Splenectomy or Spleen Trauma: No Other PMH: OA/Afib/paced/tia/hypogonadism?/throid issues - Social History Smoking Status: Never smoked Constitutional: Initial Vital Signs Heart Rate 62 11/23/17 23:36 Respiratory Rate 18 11/23/17 23:36 Blood Pressure 99/77 L 11/23/17 23:36 O2 Sat (%) 92 11/23/17 23:36 O2 Delivery Mode Nasal Cannula O2 (L/minute) 2 Allergies/Adverse Reactions: No Known Allergies Allergy (Verified 09/04/17 06:03) Home Medications: Medication Instructions Recorded Aspirin [Aspirin 81mg (*)] 81 mg PO DAILY 06/02/16 Mirtazapine 15 mg PO HS 09/21/16 Acetaminophen [Tylenol ES 500 mg 1,000 mg PO Q6 PRN 05/19/17 (*)] Cholecalciferol Vit D3 [Vitamin D3 2,000 units PO DAILY 05/19/17 2000 units tab (OTC)] Citalopram Hydrobromide [celeXA 10 10 mg PO DAILY 05/19/17 MG] Loperamide HCl [Imodium 2 mg (*)] 2 mg PO BID PRN 05/19/17 Rivaroxaban [Xarelto 15mg (*)] 15 mg PO DAILY 05/19/17 Acetaminophen [Tylenol 325mg (*)] 650 mg PO Q4HRS PRN tab 05/22/17 Cephalexin [Keflex (*)] 500 mg PO Q8 cap 05/22/17 Fludrocortisone Acetate [Florinef] 0.1 mg PO DAILY tab 05/22/17 Levothyroxine [Synthroid 100 mcg 100 mcg PO DAILY06 #90 tab 05/22/17 (*)] Melatonin [Melatonin 3 MG (*)] 3 mg PO HS PRN tab 05/22/17 Ondansetron Odt [Zofran Odt 4 mg 4 mg PO Q4HRS PRN tab 05/22/17 (*)] Medical Decision Making - Diagnostics EKG Interpretation: ECG time 11:27 p.m., atrially paced rhythm with a rate of 67 Imaging Results: Imaging Impressions Chest X-Ray 11/23/17 23:23 Impression: 1. Persistent right lower lobe pleuroparenchymal scarring. 2. Pacemaker without pneumothorax. 3. No pulmonary edema or definite acute pneumonia. Imaging: I viewed and interpreted images myself ED Course/Re-evaluation: 82-year-old male with right leg blood per rectum on rivaroxaban. Blood pressure is 99/77. He has not tachycardic however he is paced. I-STAT H&H are 10 and 30. I have ordered PCC and TXA. He has been typed and crossed. I have discussed with SKYE Holliday. He states that until the patient's rivaroxaban is cleared from his system he cannot perform any interventions. I have discussed with Dr. Henry PA. He will see the patient in the hospital. Patient be admitted to the PCU. He has received IV fluids. He is awake alert and appropriate. Critical Care Time: I spent a total of 35 minutes of critical care time in obtaining history, performing a physical exam, bedside monitoring of interventions, collecting and interpreting tests and discussion with consultants but not including time spent performing procedures. - Data Points Laboratory Results: Laboratory Results 11/23/17 23:28 11/23/17 23:28 11/23/17 11/23/17 11/23/17 23:29 23:28 23:28 WBC RBC Hgb POC Hgb 10.2 gm/dL L gm/dL (13.7-17.5) Hct POC Hct 30 % L % (40-51) MCV MCH MCHC RDW Plt Count MPV Neut % (Auto) Lymph % (Auto) Sutter % (Auto) Eos % (Auto) Baso % (Auto) Nucleat RBC Rel Count Absolute Neuts (auto) Absolute Lymphs (auto) Absolute Monos (auto) Absolute Eos (auto) Absolute Basos (auto) Absolute Nucleated RBC Immature Gran % Immature Gran # PT 20.6 SEC H SEC (12.0-15.0) INR 1.76 H (0.83-1.16) APTT 36.4 SEC SEC (23.0-38.0) POC Sodium 142 mEq/L mEq/L (135-145) Sodium POC Potassium 4.6 mEq/L mEq/L (3.3-5.0) Potassium POC Chloride 108 mEq/L mEq/L (97-110) Chloride Carbon Dioxide Anion Gap POC BUN 42 mg/dL H mg/dL (7-23) BUN Creatinine POC Creatinine 2.0 mg/dL H mg/dL (0.7-1.3) Estimated GFR Glucose POC Glucose 111 mg/dL H mg/dL (70-100) Calcium Patient ABO/Rh A POSITIVE Antibody Screen NEGATIVE Crossmatch IS Only See Detail 11/23/17 11/23/17 23:28 23:28 WBC 7.84 10^3/uL 10^3/uL (3.80-9.50) RBC 3.60 10^6/uL L 10^6/uL (4.40-6.38) Hgb 11.0 g/dL L g/dL (13.7-17.5) POC Hgb Hct 32.9 % L % (40.0-51.0) POC Hct MCV 91.4 fL fL (81.5-99.8) MCH 30.6 pg pg (27.9-34.1) MCHC 33.4 g/dL g/dL (32.4-36.7) RDW 14.9 % % (11.5-15.2) Plt Count 183 10^3/uL 10^3/uL (150-400) MPV 10.6 fL fL (8.7-11.7) Neut % (Auto) 61.2 % % (39.3-74.2) Lymph % (Auto) 28.6 % % (15.0-45.0) Sutter % (Auto) 7.1 % % (4.5-13.0) Eos % (Auto) 2.2 % % (0.6-7.6) Baso % (Auto) 0.5 % % (0.3-1.7) Nucleat RBC Rel Count 0.0 % % (0.0-0.2) Absolute Neuts (auto) 4.80 10^3/uL 10^3/uL (1.70-6.50) Absolute Lymphs (auto) 2.24 10^3/uL 10^3/uL (1.00-3.00) Absolute Monos (auto) 0.56 10^3/uL 10^3/uL (0.30-0.80) Absolute Eos (auto) 0.17 10^3/uL 10^3/uL (0.03-0.40) Absolute Basos (auto) 0.04 10^3/uL 10^3/uL (0.02-0.10) Absolute Nucleated RBC 0.00 10^3/uL 10^3/uL (0-0.01) Immature Gran % 0.4 % % (0.0-1.1) Immature Gran # 0.03 10^3/uL 10^3/uL (0.00-0.10) PT INR APTT POC Sodium Sodium 139 mEq/L mEq/L (135-145) POC Potassium Potassium 4.6 mEq/L mEq/L (3.5-5.2) POC Chloride Chloride 107 mEq/L mEq/L (97-110) Carbon Dioxide 26 mEq/l mEq/l (22-31) Anion Gap 6 mEq/L L mEq/L (8-16) POC BUN BUN 47 mg/dL H mg/dL (7-23) Creatinine 1.8 mg/dL H mg/dL (0.7-1.3) POC Creatinine Estimated GFR 36 Glucose 102 mg/dL H mg/dL (70-100) POC Glucose Calcium 8.4 mg/dL L mg/dL (8.5-10.4) Patient ABO/Rh Antibody Screen Crossmatch IS Only Medications Given: Tranexamic Acid 1,000 mg/ (Sodium Chloride) 510 mls @ 63.75 mls/hr IV ONCE ONE Stop: 11/24/17 07:41 Last Admin: 11/24/17 00:10 Dose: 510 mls Sodium Chloride (Ns) 1,000 mls @ 200 mls/hr IV CONT PADMINI Stop: 05/23/18 01:14 Last Admin: 11/24/17 03:13 Dose: 1,000 mls Pantoprazole Sodium (Protonix) 40 mg IVP BID PADMINI Stop: 05/23/18 01:14 Last Admin: 11/24/17 03:13 Dose: Not Given Discontinued Medications Tranexamic Acid 1,000 mg/ (Sodium Chloride) 110 mls @ 660 mls/hr IV ONCE ONE Stop: 11/23/17 23:51 Last Admin: 11/23/17 23:46 Dose: 110 mls Prothrombin Complex Concent (Human) (Kcentra) 5,000 unit in 200 mls @ 0 mls/hr IV ONCE ONE; Per Protocol PRN Reason: Protocol Stop: 11/23/17 23:31 Last Admin: 11/24/17 00:45 Dose: 200 mls Sodium Chloride (Ns) 1,000 mls @ 0 mls/hr IV ONCE ONE PRN Reason: Wide Open Stop: 11/24/17 00:08 Last Admin: 11/24/17 00:05 Dose: 1,000 mls Point of Care Test Results: 11/23/17 23:29 POC Sodium 142 POC Potassium 4.6 POC Chloride 108 POC BUN 42 H POC Creatinine 2.0 H POC Glucose 111 H Departure - Departure Disposition: [facility] In[facility] Acute Clinical Impression: Lower GI bleed Condition: Serious
[2017-11-24] MEDS ORDERED: NS 1,000 ML IV ONE ×2 (00:07→11:26)
[2017-11-24] MEDS ORDERED: HUMAN PROTHROMBIN COMPLX(PCC) 1 UNIT/0.04 ML VIAL IV ONE (00:20)
[2017-11-24] MEDS ORDERED: ONDANSETRON DISINTEGRATING 4 MG TAB PO PRN (01:03)
[2017-11-24] MEDS ORDERED: ONDANSETRON 4 MG/2 ML VIAL IVP PRN (01:03)
[2017-11-24] MEDS ORDERED: PROMETHAZINE HCL 25 MG/ML INJ IVP PRN (01:03)
[2017-11-24] MEDS ORDERED: ACETAMINOPHEN 325 MG TAB PO PRN (01:03)
[2017-11-24] MEDS ORDERED: diphenhydrAMINE 25 MG CAP PO PRN (01:03)
[2017-11-24] MEDS ORDERED: HYDROmorphone HCL/NS 0.5 MG/ML SYR IVP PRN (01:03)
[2017-11-24] MEDS ORDERED: LORazepam 2 MG/ML INJ IVP PRN (01:03)
--- NOTE | 2017-11-24 01:21 | SOAPPROG ---
SOAP Progress Note Assessment/Plan: Assessment: Plan: 11/24/17 01:18 probable lower GI bleed on xarelto. ER products replacement in action. Patient with stable BP. expect HGB to drop. PRBC's ordered. Active bleeding currently. GI aware (Dr Chambers). Patient is full Cor will notify family of situation. PCU admit. Follow serial H&H, replace blood as indicated. Patient with underlying dementia, CKD, orthostasis, a fib, pacer, anxiety/ depression Subjective: Patient well known to me with GI bleed starting today. 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 No pain or distress claimed by patient. Lives in custodial Objective: Vital Signs Temp Pulse Resp BP Pulse Ox 36.6 C 70 18 97/60 L 98 11/24/17 00:15 11/24/17 01:13 11/24/17 01:13 11/24/17 01:13 11/24/17 01:13 PT 20.6 SEC (12.0-15.0) H 11/23/17 23:28 INR 1.76 (0.83-1.16) H 11/23/17 23:28 Gen: pale, NAD Lungs: CTAB Heart: paced rhythm regular rate Abd + bs soft Clean evidence of maroon stool with incontinence in ER LE's stable 2-3+ edema EKG atrial paced with RBBB CXR stable Hgb 10.2 BUN 40's Cr 2.0 ICD10 Worksheet Patient Problems: Problems Problem Status Onset Chronic Disease Mgmt/Transitional Care Acute UTI (urinary tract infection) Acute Acute on chronic renal insufficiency Acute Altered mental status Acute Cholecystitis Acute Choledocholithiasis Acute
--- NOTE | 2017-11-24 02:07 | GHP ---
[f rep st] HISTORY AND PHYSICAL DATE OF ADMISSION: 11/23/2017 REASON FOR ADMISSION: Probable lower GI bleed. HISTORY OF PRESENT ILLNESS: The patient lives in assisted living chronically. He was noted to have blood in his undergarments today. Was brought into the ER for further evaluation this evening. His bleeding continued. He is known to be on Xarelto mg daily. He has underlying dementia, c hronic kidney disease, chronic atrial fibrillation. He denies any significant pain, distress, shortn ess of breath, chest pain or any other abdominal complaints. He is aware of the situation and is cur rently comfortable with treatment. PAST MEDICAL HISTORY: Significant for dementia, underlying orthostasis, pacemaker placement, chronic atrial fibrillation on anticoagulant, history of pulmonary emboli, underlying anxiety and depression , recurrent urinary tract infection, longstanding insomnia, chronic kidney disease with a creatinine around 2.0 as a baseline, low back pain, memory loss, hyperlipidemia, chronic edema. ALLERGIES: No known drug allergies. MEDICATIONS: Levothyroxine 88 mcg daily, paroxetine 10 mg daily, Remeron 15 mg nightly. Xarelto eit her 15 or 20 mg daily. Chart clarification pending. SOCIAL HISTORY: Nondrinker, nonsmoking. Lives in assisted living. He has supportive family in the area. He quit consuming alcohol in 2008. 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 He is limited in activity based on orthostasis and back pain. He is . FAMILY HISTORY: Father at 80. Mother in her 50s from colon cancer. PAST SURGICAL HISTORY: Noncontributory. REVIEW OF SYSTEMS: Patient denies any acute complaints other than noted GI bleeding today. No fever , chills. No headache. Chronic lightheadedness is unchanged. No shortness of breath, cough, wheeze or congestion. No recent difficulties with chewing or swallowing or other components of digestion. Last colonoscopy is unknown. No acute urinary complaints. Lower extremity edema has been stable. Musculoskeletal complaints have otherwise been stable. PHYSICAL EXAMINATION: VITAL SIGNS: Blood pressure ranging from a low at 89/52 to a high of 118/65 i n the ER setting. Heart rate 60s and 70s with a paced rhythm. Atrial fibrillation underlying rhythm . Respiratory rate 18 to 20. Saturations 93% to 99% on 2 L per of oxygen. Temperature 36.6. GENER AL: Pale, pleasant male resting on the ER jamirrprabhu with evidence of GI bleeding. He responds appropri ately. NECK: Without masses. LUNGS: Mildly diminished breath sounds. Otherwise, clear. HEART: Regular rhythm. Pacemaker noted in left chest wall. UPPER EXTREMITIES: No upper body evidence of t rauma. ABDOMEN: Positive bowel sounds. Soft, nontender. Diaper is loaded with maroon colored stoo l. GENITALIA: Unremarkable. LOWER EXTREMITIES: With 2+ edema. MUSCULOSKELETAL: Without acute ev idence of trauma. IMAGING: Chest x-ray: Stable. Scarring in the left base. LABORATORY: Baseline hemoglobin initially 11.0; repeat 10.2 at 2329 this evening. INR 1.76. Chemis tries: Elevated BUN 47. Creatinine 2.0. Electrolytes otherwise balanced. ASSESSMENT AND PLAN: Large lower gastrointestinal bleed on a patient on chronic anticoagulation ther apy. Reversal agents have been administered in the emergency room. The patient has been typed and c rossed. Blood has been ordered and will be transfused based on following hemoglobin. Serial hemoglo bin and hematocrit have been ordered. has been notified of the situation. Given acti ve bleeding, no current position for colonoscopy until bleeding is controlled. We will add Protonix intravenous to minimize potential for upper gastrointestinal bleed contribution to current situation. We will hold any anticoagulants. We will have his medications corroborated by pharmacy in the morn ing. Continue antidepressants as per his current usual schedule. Given the complexity of current situation, patient will stay in the hospital for estimated more than 2 midnights. /[id number]/MODL
[2017-11-24] MEDS: NS 1,000 ML IV SCH ×2 (03:13→10:52)
[2017-11-24] MEDS: PANTOPRAZOLE SODIUM 40 MG VIAL IVP SCH ×3 (03:13→21:09)
[2017-11-24 06:43] LABS: PLATELET COUNT 137 10^3/uL (150-400)
[2017-11-24 06:53] LABS: INR 1.33 (0.83-1.16); PROTIME(PATIENT) 16.7 SEC (12.0-15.0)
--- NOTE | 2017-11-24 08:16 | SOAPPROG ---
SOAP Progress Note Assessment/Plan: Assessment: Plan: 11/24/17 01:18 probable lower GI bleed on xarelto. ER products replacement in action. Patient with stable BP. expect HGB to drop. PRBC's ordered. Active bleeding currently. GI aware (Dr Chambers). Patient is full Cor will notify family of situation. PCU admit. Follow serial H&H, replace blood as indicated. Patient with underlying dementia, CKD, orthostasis, a fib, pacer, anxiety/ depression 11/24/17 08:14 GI bleed on Xarelto--stable this am. Hgb has dropped a bit, but appears stable currently. Will check q 4 hour for 2 more values. GI consult pending. Continue fluids and protonix. Replace PRBC's for hgb <8 h/o recurrent large volume PE's and a fib--he will need to resume anticoag when safe to do so. anxiety/depression/dementia--stable challenges Subjective: Joshi denies complaints this am. Tired from little sleep. No SOB/CP or GI pain. Objective: Vital Signs Temp Pulse Resp BP Pulse Ox 36.4 C 70 14 126/67 H 98 11/24/17 04:00 11/24/17 07:55 11/24/17 07:55 11/24/17 07:55 11/24/17 07:55 Laboratory Results 11/24/17 06:30 11/24/17 06:30 11/23/17 11/24/17 11/25/17 05:59 05:59 05:59 Intake Total 2851 Output Total 0 Balance 2851 PT 16.7 SEC (12.0-15.0) H 11/24/17 06:30 INR 1.33 (0.83-1.16) H 11/24/17 06:30 Gen: tired, pleasant, trying to sleep. HEENT: right eye crusted Lungs: diminished BS in bases Heart: paced a fib BP improved Abd + bs soft, no gross masses LE's stable large edema Hgb low of 7.8 current 9.0 BUN stable Cr dropped from 2.0---> 1.5 after fluids UOP reported as 0. ICD10 Worksheet Patient Problems: Problems Problem Status Onset Lower GI bleed Acute Acute on chronic renal insufficiency Acute Altered mental status Acute Cholecystitis Acute Choledocholithiasis Acute Chronic Disease Mgmt/Transitional Care Acute UTI (urinary tract infection) Acute
--- NOTE | 2017-11-24 08:24 | PDMN ---
Medical Necessity Medical necessity: est los>2mn for large LGIB in pt. on chronic AC therapy, unable to perform colonoscopy r/t active bleeding; admit for reversal agents, GI consult, IVF, IV PPI, and serial H&H; comorbid dementia, advanced age, orthostasis, afib on AC, CKD, recurrent UTI, hx PE; per order and H&P 11/24/17
--- NOTE | 2017-11-24 09:38 | ASMTCASEMG ---
Living Arrangements What is your living Answers: Alone arrangement? Who do you live with? Type Of Residence What kind of residence do Answers: Assisted Living you live in? Discharge Plan Comments Coordination Status Comments Notes: Patient is an 82yo male who lives in [facility] and was brought by EMS to [facility], due to passing bright red blood per rectum. Patient is experiencing weakness. Patient admitted for large lower gastrointestinal bleed on chronic anticoagulation therapy. Gastroenterology consult ordered. No therapies have been ordered at this time. D/C plan TBD. CM will follow. Date Signed: 11/24/2017 09:37 AM Electronically Signed By:Kezia Porter LCSW
--- NOTE | 2017-11-24 10:55 | PDANEPAE ---
ANE History of Present Illness 82 yo for egd/colon ANE Past Medical History - Cardiovascular History Hx Hypertension: Yes Hx Arrhythmias: Yes Hx CHF / Valvular Disease: No Cardiovascular History Comment: dual chamber pacer.On Xarelto for Afib/PE. HTN- not on RX now,RBBB, orthostatic hypotension. - Pulmonary History Hx COPD: No Hx Asthma/Reactive Airway Disease: No Hx Recent Upper Respiratory Infection: No Hx Oxygen in Use at Home: No Hx Sleep Apnea: No Pulmonary History Comment: hx of PE 2007-on Xarelto.Pulmonary HTN by echocardiogram. - Neurologic History Neurologic History Comment: memory lapses per Dana [facility] ANALYST's note 09/09/16 - Endocrine History Hx Diabetes: No Endocrine History Comment: hypothyroid - Renal History Hx Renal Disorders: No - Liver History Hx Hepatic Disorders: No - Neurological & Psychiatric Hx Hx Neurological and Psychiatric Disorders: No - Cancer History Hx Cancer: No - Congenital Disorder History Hx Congenital Disorders: No - GI History Hx Gastrointestinal Disorders: No - Other Health History Other Health History: R inguinal hernia - Chronic Pain History Chronic Pain: No - Surgical History Prior Surgeries: R cataract surgery 2010, pacemaker inserted. Pacemaker generator change 06/02/16. ANE Review of Systems Review of Systems: - Exercise capacity METS (RN): 2 METS - Pacemaker Pacemaker Type: Bi-Ventricular Date Pacemaker Last Checked: december 2016 ANE Patient History - Allergies Allergies/Adverse Reactions: No Known Allergies Allergy (Verified 09/04/17 06:03) - Home Medications Home medications: home medication list seen and reviewed Home Medications: Aspirin [Aspirin 81mg (*)] 81 mg PO DAILY 06/02/16 [Last Taken 11/23/17] Mirtazapine 15 mg PO HS 09/21/16 [Last Taken 11/23/17] Cholecalciferol Vit D3 [Vitamin D3 2000 units tab (OTC)] 2,000 units PO DAILY [Last Taken 11/23/17] Citalopram Hydrobromide [celeXA 10 MG] 10 mg PO DAILY 05/19/17 [Last Taken 11/23] Loperamide HCl [Imodium 2 mg (*)] 2 mg PO BID PRN 05/19/17 [Last Taken Unknown] Rivaroxaban [Xarelto 15mg (*)] 15 mg PO DAILY 05/19/17 [Last Taken 11/23/17] Furosemide [Lasix 20 MG (*)] 20 mg PO DAILY 11/24/17 [Last Taken 11/23/17] - NPO status NPO Status: no food or drink >8 hours - Smoking Hx Smoking Status: Never smoked ANE Labs/Vital Signs - Labs Result Diagrams: 11/24/17 10:40 11/24/17 06:30 - Vital Signs Blood Pressure: 126/67 Heart Rate: 70 Respiratory Rate: 14 O2 Sat (%): 98 Height: 6 ft 3 in Weight: 99.9 kg ANE Physical Exam - Airway Neck exam: FROM Mallampati Score: Class 2 - Pulmonary Pulmonary: no respiratory distress - Cardiovascular Cardiovascular: regular rate and rhythym - ASA Status ASA Status: IV ANE Anesthesia Plan Anesthesia Plan: MAC
[2017-11-24] MEDS ORDERED: PROPOFOL/EMULSION 500 MG/50 ML BOTTLE IV ONE (10:57)
--- NOTE | 2017-11-24 11:43 | POSTOPPROG ---
Post Op Note Date of Operation: 11/24/17 Surgeon: Mak Chambers Anesthesiologist: Daly Anesthesia: Other (Specify) (IV general) Pre-op Diagnosis: hematochezia Post-op Diagnosis: mild duodenitis and mild gastritis, lots of blood in stool in distal colon Indication: hematochezia, post hemorhagic anemia Procedure: EGD adn limited colon Findings: nml esoph, mild gastritis and duodentitis, lots of blood and stool in dista Inf/Abcess present in the surg proc area at time of surgery?: No EBL: none from procedrue Total fluids administered: 300 ml NS and 1 unit FFP Complications: none immediate
--- NOTE | 2017-11-24 11:48 | GIREPORT ---
[facility] Surgical Services - Endoscopy Department Patient Name: Adi Lizarraga Procedure Date: 11/24/2017 10:58 AM Patient Type: Inpatient Attending MD/ ER Physician: Rao Ashley Procedure: Upper GI endoscopy Indications: Hematochezia Providers: Schuyler Chambers MD Referring MD: Adeel Champion Medicines: Total IV Anesthesia (TIVA) = IV general Complications: No immediate complications. Estimated blood loss: None. Description of Procedure: After obtaining informed consent, the endoscope was passed under direct vision. Throughout the procedure, the patient's blood pressure, pulse, and oxygen saturations were monitored continuously. The Endoscope was intro duced through the mouth, and advanced to the third part of duodenum. The uppe r GI endoscopy was accomplished without difficulty. The patient tolerated th e procedure well. Findings: The examined esophagus was normal. Scattered mild inflammation characterized by erythema and granularity w as found in the gastric body and in the gastric antrum. Two localized erosions without bleeding were found in the duodenal bulb . The exam was otherwise without abnormality. Estimated Blood Loss: Estimated blood loss: none. Post Op Diagnosis: - Normal esophagus. - Gastritis. - Duodenal erosions without bleeding. - The examination was otherwise normal. - No specimens collected. Recommendation: - Perform a colonoscopy today. - Use Protonix (pantoprazole) 40 mg PO daily. - Thank you for allowing me to help in your patient's care. Do not hesi ivan to call with any questions. Attending Participation: I personally performed the entire procedure. Trish Payan M.D Schuyler Chambers MD 11/24/2017 11:47:30 AM This report has been signed electronicallyMathew MD Trish Number of Addenda: 0 Note Initiated On: 11/24/2017 10:58 AM [email or web address]
--- NOTE | 2017-11-24 11:54 | GIREPORT ---
[facility] Surgical Services - Endoscopy Department Patient Name: Adi Lizarraga Procedure Date: 11/24/2017 10:58 AM Patient Type: Inpatient Attending MD/ ER Physician: Rao Ashley Procedure: Colonoscopy Indications: Hematochezia, Acute post hemorrhagic anemia Providers: Schuyler Chambers MD Medicines: Total IV Anesthesia (TIVA) Complications: No immediate complications. Estimated blood loss: None. Description of Procedure: After obtaining informed consent, the scope was passed under direct vis ion. Throughout the procedure, the patient's blood pressure, pulse, and oxyg en saturations were monitored continuously. The Colonoscope with irrigatio n channel was introduced through the anus with the intention of advancing to the cecum. The scope was advanced to the descending colon before the procedure was aborted. Medications were given. The colonoscopy was perf ormed without difficulty. The patient tolerated the procedure well. The quali ty of the bowel preparation was good. Findings: The perianal exam findings include non-thrombosed external hemorrhoids. A large amount of semi-solid stool and blood was found in the rectum, i n the sigmoid colon and in the descending colon, precluding visualization. La vage of the area was performed using copious amounts of sterile water, resul ting in incomplete clearance with continued poor visualization. Estimated Blood Loss: Estimated blood loss: none. Post Op Diagnosis: - Non-thrombosed external hemorrhoids found on perianal exam. - Stool in the rectum, in the sigmoid colon and in the descending colon . A lot of the stool appears brown, so I do think it is prob a left sided b leed. - No specimens collected. Recommendation: - Return patient to [facility] for [facility] care. - Repeat colonoscopy at appointment to be scheduled because the bowel preparation was poor. either later today or more likely tomorrow - Thank you for allowing me to help in your patient's care. Do not hesi ivan to call with any questions. Attending Participation: I personally performed the entire procedure. Trish Payan M.D Schuyler Chambers MD 11/24/2017 11:54:06 AM This report has been signed electronicallyMathew MD Trish Number of Addenda: 0 Note Initiated On: 11/24/2017 10:58 AM [email or web address]
--- NOTE | 2017-11-24 12:16 | SOAPPROG ---
JOSE Progress Note Assessment/Plan: Assessment:Plan: see full dictated consult hematochezia in pt on aspirin and anticoagulation EGD to make sure not Upper source then limited colon to see if left sided tics reverse anticoagulation as much as we can follow Hb/HCm, PRBC as per primary 11/24/17 12:15 Objective: Vital Signs Temp Pulse Resp BP Pulse Ox 36.4 C 56 L 12 115/77 96 11/24/17 11:28 11/24/17 11:28 11/24/17 11:28 11/24/17 11:28 11/24/17 11:28 Laboratory Results 11/24/17 10:40 11/24/17 06:30 11/23/17 11/24/17 11/25/17 05:59 05:59 05:59 Intake Total 2851 Output Total 0 Balance 2851 PT 16.7 SEC (12.0-15.0) H 11/24/17 06:30 INR 1.33 (0.83-1.16) H 11/24/17 06:30 ICD10 Worksheet Patient Problems: Problems Problem Status Onset Lower GI bleed Acute Acute on chronic renal insufficiency Acute Altered mental status Acute Cholecystitis Acute Choledocholithiasis Acute Chronic Disease Mgmt/Transitional Care Acute UTI (urinary tract infection) Acute
[2017-11-24] MEDS: CITALOPRAM 20 MG TAB PO SCH (15:41)
[2017-11-24] MEDS: LEVOTHYROXINE 100 MCG TAB PO SCH (15:41)
[2017-11-24] MEDS: FLUDROCORTISONE ACETATE 0.1 MG TAB PO SCH (15:41)
[2017-11-24] MEDS ORDERED: PEG 3350/NA SULF,BICARB,CL/KCL (GAVILYTE-G) 4000 ML BTL PO ONE (17:02)
--- NOTE | 2017-11-24 18:54 | GCON ---
[f rep st] CONSULTATION DATE OF CONSULTATION: 11/24/2017 REQUESTING PHYSICIAN: Adeel Champion PA-C HISTORY OF PRESENT ILLNESS: I have been asked to see this patient in consultation for probable lower GI bleed. He is a pleasant 82-year-old male who lives in assisted living and has advanced dementia, but is quite happy. He was noted to have blood in his undergarments at the assisted living, was sent to the emergency room for evaluation, where he had significant bleeding. He has been on Xarelto daily for his atrial fibrillation. When he presented to the emergency room with significant bleeding, he received PCC and TXA as well as type and cross, and has been transfused. He was admitted to the intensive care unit. I was consulted to evaluate for GI bleed. PAST MEDICAL HISTORY: Dementia, orthostasis, permanent pacemaker, chronic atrial fibrillation, history of pulmonary emboli, underlying anxiety and depression, recurrent urinary tract infections, insomnia, chronic kidney disease , low-back pain, hyperlipidemia, chronic edema. ALLERGIES: No known drug allergies. MEDICATIONS: As an outpatient, include levothyroxine, paroxetine, Remeron, Xarelto. As an inpatient, his medications include Tylenol p.r.n., Celexa 10 mg daily, Benadryl p.r.n., Florinef 0.1 mg daily, Synthroid 100 mcg daily, Ativan p.r.n., Remeron 15 mg p.o. at bedtime, Zofran p.r.n., Protonix 40 mg IV twice daily. As noted above, he received PCC (K-Centra) and tranexamic acid in the emergency room. FAMILY HISTORY: Mother in her 50s from colon cancer. Father reportedly at age 80. This is obtained from the chart. The patient cannot give me a family history. SOCIAL HISTORY: lives in SNF, no alcohol nor tobacco currently PAST SURGICAL HISTORY: Permanent pacemaker, question thyroid surgery. Patient cannot give me a good history at present. REVIEW OF SYSTEMS: I am not sure how accurate it is, but he does not complain of anything other than the GI bleeding. Specifically asked him about chest pain , dysphagia, palpitations, nausea, vomiting, and abdominal pain. PHYSICAL EXAMINATION: GENERAL: Elderly male sitting in his bed, in no acute distress. VITAL SIGNS: Blood pressure is 126/67, pulse is 70, respirations are 14. He is 98% on 1 L nasal cannula. HEENT: Eyes anicteric, PERRL, EOMI. Mouth, no lesions. NECK: Supple. No JVD. BACK: No spine tenderness. No CVA tenderness. LUNGS: Clear. CARDIAC: S1, S2, irregular, irregular. I did not appreciate rubs or gallops. ABDOMEN: Bowel sounds are normal in pitch and frequency. Abdomen is soft with minimal epigastric tenderness on deep palpation. No hepatosplenomegaly. EXTREMITIES: No cyanosis. NEUROLOGIC: Cranial nerves intact. Nonfocal. He is confused, but quite happy. SKIN: No stigmata of advanced liver disease. LABORATORY DATA: On admission in the ER, his hemoglobin was 11, hematocrit 32.9. This dropped down to a pilo at 4 a.m. of this morning at hemoglobin 7.8 , hematocrit 24.0. He has been transfused and his hemoglobin is up to 9.0 with a hematocrit of 27.0. This morning, his pro time was 16.7, INR 1.33, but on his anticoagulation, I am not sure if that is accurate. Laboratory data from this morning, sodium 144, potassium 4.1, chloride 112, bicarb 23, BUN 41, creatinine 1.5, glucose 109, calcium 7.3. Of note, this BUN/creatinine ratio is somewhat higher than his normal. Chest x-ray from last night revealed persistent right lower lobe subpleural parenchymal scarring, pacemaker, without pneumothorax. No pulmonary edema or definite acute pneumonia. ASSESSMENT: 1. Gastrointestinal bleed, probably lower, but could be massive upper gastrointestinal bleed in a patient on aspirin as well as anticoagulation. He has been transfused and typed and crossed. I will plan for an urgent esophagogastroduodenoscopy to make sure there is no upper gastrointestinal bleed , then I will attempt a limited colonoscopy to see if I can get above the bloody area into normal stool. If I can, that would be most consistent with left-sided diverticulosis. 2. Agree with proton pump inhibitor therapy, may change that pending results of esophagogastroduodenoscopy. 3. If above is not successful in locating a site of bleeding and he slows down , I will prep him for colonoscopy tomorrow. If there is continued significant bleeding, then obtaining a tagged cell scan or angiography may be appropriate. 4. Further recommendations to follow depending upon the above and clinical course. 5. Given the patient's multiple medical issues, this will be a higher risk procedure than normal. I will ask Anesthesia to be present to administer the anesthesia and monitor the patient during the procedure. Thank you for letting me participate in this patient's healthcare. Do not hesitate to call me with any questions. /[id number]/MODL MTDD
[2017-11-24] MEDS ORDERED: NON-FORMULARY NEW DRUG (Mirtazapine [Mirtazapine] 15 MG) PO SCH (21:00)
[2017-11-24] MEDS: MIRTAZAPINE 15 MG TAB PO SCH (21:09)
[2017-11-25] MEDS: LEVOTHYROXINE 100 MCG TAB PO SCH (06:27)
[2017-11-25] MEDS: FLUDROCORTISONE ACETATE 0.1 MG TAB PO SCH (07:44)
[2017-11-25] MEDS: NS 1,000 ML IV SCH (07:45)
[2017-11-25] MEDS: PANTOPRAZOLE SODIUM 40 MG VIAL IVP SCH (07:45)
[2017-11-25] MEDS: CITALOPRAM 20 MG TAB PO SCH (07:45)
[2017-11-25] MEDS ORDERED: NON-FORMULARY NEW DRUG (Citalopram Hydrobromide [Celexa 10 Mg] 10 MG) PO SCH (09:00)
--- NOTE | 2017-11-25 09:10 | SOAPPROG ---
SOAP Progress Note Assessment/Plan: Assessment: Pleasant 82 yo male admitted for probable lower GI bleed while on Xarelto for chronic afib. Plan: GI Bleed: D/w Dr. Garcia with GI who has spoken with Kwaku, pts son. At this time they have decided not to move forward with colonoscopy given pts dementia, age, and preference to not have colonoscopy. Vitals stable, h/h stable. Will continue to monitor today and hopefully get him back home in a day or two once he is stabilized. Does appear to be slightly fluid up, so will give him some lasix this AM to diurese Anemia: chronic Dementia: at baseline CKD: fluid up, will plan to give him 20mg of lasix this morning Orthostasis: vitals stable, up with assist Afib: chronic, rate controlled. Will plan to hold xarelto per GI and restart ASA when bleeding has resolved S/p pacer 11/25/17 09:11 Subjective: Adi is resting comfortably in bed. He is not wanting to finish his bowel prep this morning. Says he does not want a colonoscopy if we can avoid it. Denies any abd pain at this time. Objective: Vital Signs Temp Pulse Resp BP Pulse Ox 36.5 C 57 L 16 125/66 H 91 L 11/25/17 07:54 11/25/17 07:54 11/25/17 07:54 11/25/17 07:54 11/25/17 07:54 Laboratory Results 11/25/17 03:49 11/24/17 06:30 11/24/17 11/25/17 11/26/17 05:59 05:59 05:59 Intake Total 2851 575 Output Total 0 0 Balance 2851 575 PT 16.7 SEC (12.0-15.0) H 11/24/17 06:30 INR 1.33 (0.83-1.16) H 11/24/17 06:30 Gen- oriented to self Head- normocephalic, atraumatic Resp- LCTAB, no wheezing, rhonchi, rales CV- RRR, no murmurs, rubs, gallops Abd- SNT, non distended Extremities- + pedal pulses, no edema noted Neuro- dementia at baseline ICD10 Worksheet Patient Problems: Problems Problem Status Onset Lower GI bleed Acute Acute on chronic renal insufficiency Acute Altered mental status Acute Cholecystitis Acute Choledocholithiasis Acute Chronic Disease Mgmt/Transitional Care Acute UTI (urinary tract infection) Acute
[2017-11-25] MEDS ORDERED: FUROSEMIDE 20 MG/2 ML VIAL IVP ONE (09:18)
--- NOTE | 2017-11-25 09:31 | SOAPPROG ---
SOAP Progress Note Assessment/Plan: Assessment/Plan: LGIB. Now, seems to have stopped, with just dark, clotted maroon stool on rectal exam, stable Hct. I had a long discussion with pt.'s son, Dr. Nation. With the above, history of dementia and health issues, and pt. refusing further prep, procedure, will not proceed with colonoscopy at this juncture. - renal diet - buffcap IV - recommend no further outpt. xarelto (risks outweigh the benefits); low-dose aspirin o.k. - no outpt protonix needed If Hcts remain stable, as I suspect, o.k. to d/c home, from a G.I. standpoint. As an outpt., besides the above, recommend iron replacement therapy x 8 weeks. Will sign off; please call if we can be of further help [phone]). 11/25/17 09:20 Subjective: cc: LGI bleed Some "sun-downing" last night, requiring 5 nurses to help with cleaning from prep. Only took 1/2 the prep, with still dark stool. Clotted, old dark maroon in color. Refusing colonoscopy, unless absolutely necessary. Refusing to drink more prep. No abdominal pain, chills, rigors. Objective: Vital Signs Temp Pulse Resp BP Pulse Ox 36.5 C 57 L 16 125/66 H 91 L 11/25/17 07:54 11/25/17 07:54 11/25/17 07:54 11/25/17 07:54 11/25/17 07:54 Laboratory Results 11/25/17 03:49 11/24/17 06:30 11/24/17 11/25/17 11/26/17 05:59 05:59 05:59 Intake Total 2851 575 Output Total 0 0 Balance 2851 575 PT 16.7 SEC (12.0-15.0) H 11/24/17 06:30 INR 1.33 (0.83-1.16) H 11/24/17 06:30 Physical Exam - Physical Exam General Appearance: WD/WN, alert, no apparent distress EENT: PERRL/EOMI, normal ENT inspection, pharynx normal, TMs normal Neck: non-tender, full range of motion, supple, normal inspection Respiratory: chest non-tender, lungs clear, normal breath sounds Cardiac/Chest: normal peripheral pulses, regular rate, rhythm Peripheral Pulses: 2+: carotid (R), carotid (L), femoral (R), femoral (L), dorsalis-pedis (R), dorsalis-pedis (L) Abdomen: normal bowel sounds, non-tender, soft Male Genitalia: deferred Rectal: blood streaked stool, No deferred Back: Normal inspection Skin: normal color, warm/dry Lymphatic: no adenopathy Extremities: normal range of motion, non-tender, normal inspection, normal capillary refill Neuro/Psych: no motor/sensory deficits, alert, normal mood/affect, oriented x 3 ICD10 Worksheet Patient Problems: Problems Problem Status Onset Lower GI bleed Acute Acute on chronic renal insufficiency Acute Altered mental status Acute Cholecystitis Acute Choledocholithiasis Acute Chronic Disease Mgmt/Transitional Care Acute UTI (urinary tract infection) Acute
--- NOTE | 2017-11-25 12:15 | ASMTCMCOM ---
CM Note CM Note Notes: Per ICU rounds, pt unwilling to complete prep for colonoscopy; pt refused procedure. Pt to be monitored for further bleeding or concerns. Pt to possibly discharge back to [facility] on Monday11/26/17, if stable. Call placed to [facility]. Spoke with Brenda - arelis Gutierrez, able to take pt back on Monday, but pt must arrive before 1400. [facility] only has a nurse available until 1400. Brenda to resume pt's home health care services with [facility]. Update provided to KRIS Neal, Tracey, CTL and Yen Ramirez PA-C. Requested Yen complete a Transfer of Care Summary for resumption of RN, PT and OT services. Pt's son Sadi to provide transportation back to [facility]. CM to fax discharge orders and updates to [facility] and [facility] on Monday or day of discharge. CM will continue to follow. Current Discharge Plan: [facility] with [facility] (RN/PT/OT) Date Signed: 11/25/2017 12:14 PM Electronically Signed By:Kamryn Alvarez RN
[2017-11-25] MEDS: MIRTAZAPINE 15 MG TAB PO SCH (20:46)
[2017-11-26] MEDS: LEVOTHYROXINE 100 MCG TAB PO SCH (06:19)
[2017-11-26 08:34] VITALS: BP 145/83
[2017-11-26] MEDS ORDERED: PANTOPRAZOLE SODIUM 40 MG TAB PO SCH (09:00)
[2017-11-26] MEDS: CITALOPRAM 20 MG TAB PO SCH (09:24)
[2017-11-26] MEDS: FLUDROCORTISONE ACETATE 0.1 MG TAB PO SCH (09:24)
--- NOTE | 2017-11-26 11:24 | PDIAF ---
- Diagnosis Diagnosis: Upper GI Bleed Code Status: Full Code - Medication Management Discharge Medications: Medications to Continue on Transfer Cholecalciferol Vit D3 [Vitamin D3 2000 units tab (OTC)] 2,000 units PO DAILY [Last Taken 11/23/17] Citalopram Hydrobromide [celeXA 10 MG] 10 mg PO DAILY 05/19/17 [Last Taken 11/23] Loperamide HCl [Imodium 2 mg (*)] 2 mg PO BID PRN 05/19/17 [Last Taken Unknown] Acetaminophen [Tylenol 325mg (*)] 650 mg PO Q4HRS PRN tab 05/22/17 [Last Taken Unknown] Fludrocortisone Acetate [Florinef] 0.1 mg PO DAILY tab 05/22/17 [Last Taken 01/05] Levothyroxine [Synthroid 100 mcg (*)] 100 mcg PO DAILY06 #90 tab 05/22/17 [Last Taken 11/23/17] Furosemide [Lasix 20 MG (*)] 20 mg PO DAILY 11/24/17 [Last Taken 11/23/17] Pantoprazole Sodium [Protonix 40mg (*)] 40 mg PO DAILY #30 tab 11/26/17 [Last Taken Unknown] Discharge Medications: Refer to the Discharge Home Medication list for PRN reason. - Orders Services needed: Home Care, Registered Nurse, Certified Gui Developer, Physical Therapy, Occupational Therapy Home Care Face to Face: I certify that this patient was under my care and that I had the required [id number] encounter meeting the encounter requirements on the discharge day. My findings support the fact that the patient is homebound as defined in Home Care Face to Face Continued: CMS Chapter 7 Medicare Benefits Manual 30.1.1 , The condition of the patient is such that there exists a normal inability to leave home and consequently, leaving home would require a considerable and taxing effort. Isolation Type: None Diet Recommendation: no restrictions on diet Diet Texture: Regular Texture Diet - Follow Up Care Current Providers and Referrals: NONE *PRIMARY CARE P,. [Unknown] - As per Instructions
--- NOTE | 2017-11-26 11:29 | SOAPPROG ---
SOAP Progress Note Assessment/Plan: Assessment: Pleasant 82 yo male admitted for probable lower GI bleed while on Xarelto for chronic afib. Plan: Lower GI Bleed: No episodes of bleeding over the past 24 hours. Will likely have some e/o blood in his stool over the next few days while the remaining blood works its way out. Plan to hold any anticoag (ASA and Xarelto) for at least 3 weeks and will need to have conversations then to decide if family/ patient are wanting to restart full anticoag given age, dementia, risks, etc. Anemia: chronic Dementia: at baseline CKD: creat down to 1.2 this AM, will d/c on home PO lasix dose (20mg daily) Orthostasis: vitals stable, up with assist Afib: chronic, rate controlled. As discussed above - hold anticoag for now. 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 Dr. Cormier discussed with sons Sadi and Kwaku this morning the very real risk of Chapis being off of anticoag for the next 3 weeks while his ulcer heals. They verbalize understanding and will be discussing code status and filling out a MOST form so that it is more clear what patient and family wishes are should he throw any clots during this time. More conversations to be had outpatient as well. S/p pacer: paced, stable 11/26/17 11:30 Subjective: Nation is sitting up in his chair this morning. He reports that he ate a large breakfast, slept well and is feeling well and eager to get back to [place]. He denies any abd pain this morning. Objective: Vital Signs Temp Pulse Resp BP Pulse Ox 37.1 C 63 18 145/83 H 93 11/26/17 08:00 11/26/17 08:00 11/26/17 08:00 11/26/17 08:00 11/26/17 08:00 Laboratory Results 11/26/17 03:46 11/26/17 03:46 11/25/17 11/26/17 11/27/17 05:59 05:59 05:59 Intake Total 575 650 Output Total 0 200 Balance 575 450 PT 16.7 SEC (12.0-15.0) H 11/24/17 06:30 INR 1.33 (0.83-1.16) H 11/24/17 06:30 Gen- AAO, vitals stable over night Head- normocephalic, atraumatic ENT- PEERL, EOMI Resp- LCTAB, no wheezing, rhonchi, rales CV- regular, no murmurs, rubs, gallops Abd- SNT, non-distended Extremities- mild non-pitting edema to bilat lower extremities Psych- participatory in conversation, mood and affect normal ICD10 Worksheet Patient Problems: Problems Problem Status Onset Lower GI bleed Acute Acute on chronic renal insufficiency Acute Altered mental status Acute Cholecystitis Acute Choledocholithiasis Acute Chronic Disease Mgmt/Transitional Care Acute UTI (urinary tract infection) Acute
--- NOTE | 2017-11-26 12:17 | ASDISCHSUM ---
Discharge Information Plan Status:Assisted Living Medically Cleared to Leave:11/26/2017 Discharge Date:11/26/2017 CM D/C Disposition:Home Health Service ADT D/C Disposition:Nursing Home Facility Projected Discharge Date:11/26/2017 01:00 PM Transportation at D/C:Family Discharge Delay Reason: Follow-Up Date:11/26/2017 01:00 PM Discharge Slot: Final Diagnosis:Upper GI Bleed Placement Information Referral Type:Assisted Living Residence Referral ID:[id number] Provider Name:[facility] Address 1:[address] Address 2: City:[place] Selection Factors: State:[place] Referral Type:*Home Health Care Services Referral ID:[id number] Provider Name:[facility] Address 1:[address] [address] Phone Number: Address 2: Fax Number: [facility]:[place] Selection Factors: State:[place] Patient Contact Information Contact Name:CHONG Relationship:Son Address:[address] City:[place] Alternate Phone: [facility]/Zip Code:[place] [address] Email: Financial Information Financial Class:Medicare Primary Plan Desc:MEDICARE INPATIENT Primary Plan Number:[id number] Secondary Plan Desc:ZULAY/TONIO SUPPLEMENT Secondary Plan Number:[id number] Assessment Information [facility] Initial CM Assessment Living Arrangements What is your living Answers: Alone arrangement? Who do you live with? Type Of Residence What kind of residence do Answers: Assisted Living you live in? Discharge Plan Comments Coordination Status Comments Notes: Patient is an 82yo male who lives in [facility] and was brought by EMS to [facility], due to passing bright red blood per rectum. Patient is experiencing weakness. Patient admitted for large lower gastrointestinal bleed on chronic anticoagulation therapy. Gastroenterology consult ordered. No therapies have been ordered at this time. D/C plan TBD. CM will follow. Date Signed: 11/24/2017 09:37 AM Electronically Signed By:Kezia Porter LCSW [facility] Progress Note CM Note CM Note Notes: Per ICU rounds, pt unwilling to complete prep for colonoscopy; pt refused procedure. Pt to be monitored for further bleeding or concerns. Pt to possibly discharge back to [facility] on Monday11/26/17, if stable. Call placed to [facility]. Spoke with Brenda - arelis Gutierrez, able to take pt back on Monday, but pt must arrive before 1400. [facility] only has a nurse available until 1400. Brenda to resume pt's home health care services with [facility]. Update provided to KRIS Neal, Tracey, [facility] and Yen Ramirez PA-C. Requested Yen complete a Transfer of Care Summary for resumption of RN, PT and OT services. Pt's son Sadi to provide transportation back to [facility]. CM to fax discharge orders and updates to [facility] and [facility] on Monday or day of discharge. CM will continue to follow. Current Discharge Plan: [facility] with [facility] (RN/PT/OT) Date Signed: 11/25/2017 12:14 PM Electronically Signed By:Kamryn Alvarez RN Case Management Discharge Plan Note Case Management Discharge Discharge Order Complete? Answers: Yes Patient to Obtain Answers: via Family Medications Transportation Arranged Answers: Family/Friends Transport will Pick (Date 11/26/2017 12:30 PM & Time) Faxed Final Orders Answers: Yes Notes: to [facility] and [facility] Family Notified Answers: Yes Notes: Family to transport Discharge Comments Notes: Patient has been discharged and will return to [facility]. Family to transport. Date Signed: 11/26/2017 12:15 PM Electronically Signed By:Sabiha Ordonez LCSW Intervention Information Intervention Type:*IM-Signed Date of Service:11/26/2017 12:15 PM Patient Type:Inpatient Staff Member:NIRU Ordonez Judith Hours:0.25 Discipline:Architect Intern Severity: Comment:
--- NOTE | 2017-11-26 13:25 | GDS ---
[f rep st] DISCHARGE SUMMARY PRIMARY DIAGNOSIS: Lower gastrointestinal bleed. The patient is an 82-year-old male, who presents to the emergency room from [facility], with significant amount of gastrointestinal bleeding. His initial H and H were 11 and 32.9, dropped down to 7.8 and 24. He did receive one unit of packed red blood cells and his hemoglobin returned to 9.0. GI was consulted, who initially did an upper and lower scope, but were unable to identify the bleed given the lack of prep prior to the scope. He was considered for another colonoscopy, however, per Dr. Garcia with GI, the bleeding had apparently stopped and Dr. Garcia discussed with patient and family, who did not wish to proceed with another colonoscopy at that time. GI was currently recommending that the patient be off his anticoagulation for 3 weeks and then can resume aspirin and Xarelto if indicated at that time. The patient does have significant history of pulmonary embolism, for which he was taking the Xarelto. Multiple conversations have been had with his sons, who are his decision makers at this time, regarding the real risk of him being off anticoagulation for the next 3 weeks, but given the risk of rebleeding if initiated sooner than 3 weeks, he will have to be off the anticoagulation. They do understand this risk and have decided to reinstate a DNI/DNR for the patient at this time, and have filled out a [place] MOST form. So, the patient will be discharged back to [facility] today, off the anticoagulation for 3 weeks, and will plan to follow up in the office to reevaluate the resumption of the anticoagulation in the next few weeks. DISCHARGE MEDICATIONS: Include Imodium 2 mg p.o. b.i.d. p.r.n., 10 mg p.o. daily, cholecalciferol/vitamin D3 2,000 units p.o. daily, acetaminophen 650 mg p.o. q.4 hours p.r.n., fludrocortisone 0.1 mg p.o. daily, levothyroxine 100 mcg p.o. daily and Furosamide 20 mg p.o. daily. As noted above, we will be holding his Xarelto and aspirin for the time being. he is also taking mirtazapine 15 mg p.o. q.h.s. We will also discharge him with KIANNA morrison to help with DVT prevention while he is off his anticoagulation. The patient will plan to follow up in the office as noted above in the next few weeks to discuss resumption of anticoagulation. /[id number]/MODL MTDD
--- NOTE | 2017-11-30 07:41 | PQFORM ---
PHYSICIAN QUERY FORM Needs Your Response This query form is being sent to you to assure this patient record is coded properly. Please respond to the question below: HOLLOW WARE MAKER QUESTION: Dr Henry Please clarify this patients Anemia as __X_ Acute Blood Loss Anemia ___ Chronic Blood Loss Anemia ___ Other Type (Please Specify __) ___ Unable to Determine Thank You Malorie GOLDSTEIN Business Development Assistant INSTRUCTIONS FOR RESPONSE: Answer question by clicking on the "Edit Document" button. Move cursor to area below the stars. When complete, hit "Save." Click on the "Sign" button, then click "Sign" again. Type in your PIN and hit "Enter." MTDD
--- NOTE | 2017-11-30 09:35 | POSTANESTH ---
Post Anesthetic Evaluation Cardiovascular Status: Normal, Stable Respiratory Status: Normal, Stable Level of Consciousness/Mental Status: Can Participate in Eval Pain Control: Adequate, Prn Tx Ordered Nausea/Vomiting Control: Adequate, Prn Tx Ordered Complications Possibly Related to Anesthesia: None Noted
== END 2017-11-26 12:30 | DRG 378 ==
LOC: EDUNIT# → F2N 11-24 02:04 → F2W 11-25 15:24
PROVIDERS: ADMIT Family Medicine; ATTEND Internal Medicine
DX: K92.2 Gastrointestinal hemorrhage, unspecified (principal); K29.70 Gastritis, unspecified, without bleeding; K26.9 Duodenal ulcer, unspecified as acute or chronic, without hemorrhage or perforation; D62 Acute posthemorrhagic anemia; K64.4 Residual hemorrhoidal skin tags; I48.2 Chronic atrial fibrillation; I25.10 Atherosclerotic heart disease of native coronary artery without angina pectoris; N18.9 Chronic kidney disease, unspecified; F03.90 Unspecified dementia, unspecified severity, without behavioral disturbance, psychotic disturbance, mood disturbance, and anxiety; E03.9 Hypothyroidism, unspecified; E78.5 Hyperlipidemia, unspecified; Z95.0 Presence of cardiac pacemaker; Z79.01 Long term (current) use of anticoagulants; Z86.711 Personal history of pulmonary embolism; Z87.440 Personal history of urinary (tract) infections
CPT/HCPCS: 82947-QW; 96365; C9132; J1940; J2704; P9016; P9017